=== PATIENT | male | born 1945 | race Caucasian/White ===

== ENCOUNTER 2018-12-01 11:12 | Inpatient (IN) | payer MEDICARE ==
[2018-12-01] VITALS (14 sets, daily range): BP systolic 115–147; BP diastolic 69–102
[~2018-12-01] VITALS: Ht 175.3 cm; Wt 97.1 kg
[~2018-12-01 11:12] MED LIST: ALLP300T PO; AMLO10TA PO; ATOR80TA PO; CALC-656 PO; CLIN-81 PO; CYAN100T PO; FURO40TA4 PO; GABA-486 PO; GARL200T PO; GLIP10TA13 PO; HYDR-623 PO; INDO50CA PO; LISI40TA PO; OMEG1CAP74 PO; OMEP20CA12 PO; WARF5TAB6 PO
[2018-12-01] MEDS ORDERED: diphenhydrAMINE 25 MG TAB (BENADRYL) PO PRN (11:30)
[2018-12-01] MEDS ORDERED: DOCUSATE SODIUM 100 MG (COLACE) CAP PO PRN (11:30)
[2018-12-01] MEDS ORDERED: ONDANSETRON 4 MG/2 ML (SDV) Z0FRAN IVP PRN ×2 (11:30→20:45)
[2018-12-01] MEDS ORDERED: VANCOMYCIN INJECTION 1,000 MG in NS (IVPB) 250 ML IV SCH (11:30)
[2018-12-01] MEDS ORDERED: ONDANSETRON 4 MG (ZOFRAN) ORAL DISSOLVE TAB PO PRN (11:30)
[2018-12-01] MEDS ORDERED: ACETAMINOPHEN 500 MG TAB (TYLENOL) PO PRN (11:30)
[2018-12-01] MEDS ORDERED: LOPERAMIDE 2 MG (IMODIUM) TABLET PO PRN (11:30)
[2018-12-01] MEDS ORDERED: ALPRAZolam 0.25 MG (XANAX) TAB PO PRN (11:30)
[2018-12-01] MEDS ORDERED: CALCIUM CARBONATE 500 MG (TUMS) TAB.CHEW PO PRN (11:30)
--- NOTE | 2018-12-01 13:05 | History & Physical-Hospitalist ---
[facility] 12/01/18 1305: History of Present Illness HPI/Chief Complaint Pt presents today after receiving an abscess drainage procedure for an infected post cervical fusion surgery incision. He has a history of CABG and stent placement with previous [place] in 2011 and 2016. He had surgery for his cervical fusion on 11/15/18 and had gone to [facility] for an abscess that had formed at his surgical incision site. He was transfer to this facility at the request of Dr. Hagen the surgeon who had performed the cervical fusion operation in order to monitor his infection directly. He reports that the incision had been getting painful and making him very irritable. He reports getting angry at his which caused him to want to to come to the hospital to get it checked out. He reports having a fever at the hospital but it since has gone down. He had trouble sleeping due to the pain, but after the draining he reports it is much better already. He is going to be going into the OR to have the wound opened and drained tonight. He does report having some trouble swallowing water since his original operation in which they had to use an anterior and posterior approach. Source: patient Date Seen 12/01/18 Attending Physician Landon Hidalgo MD PCP Referring Physician Date of Admission Home Medications & Allergies Home Medications Reviewed patient Home Medication Reconciliation performed by pharmacy medication reconciliations poultry field service technician and/or nursing. Patients Allergies have been reviewed. Allergies Allergies Coded Allergies Penicillins (Unverified Allergy, Unknown, HIVES, 06/13/13) Past Btxnrmj-Qwddvd-Hjykrj Hx Patient Social History Alcohol Use: Denies Use Smoking Status: Former Smoker Immunizations Up To Date Date of Pneumonia Vaccine: Nov 24, 2011 Past Medical History Surgeries: CABG, Coronary Stent Review of Systems Constitutional: No chills, No dizziness; fever EENTM: No hearing loss, No ear pain, No blurred vision, No vision loss, No throat pain Respiratory: No cough, No short of breath Cardiovascular: No chest pain, No palpitations Gastrointestinal: No abdominal pain, No constipation, No diarrhea, No nausea, No vomiting Genitourinary: No dysuria, No frequency, No hematuria, No pain Musculoskeletal: back pain (At incision site); No muscle pain, No muscle cramps; muscle weakness (Right arm flexion, Left arm abduction) Skin: no symptoms reported Psychiatric/Neurological: Depressed; Denies Headache, Denies Numbness; Tingling (Bilateral 1st toes); Denies Tremors Physical Exam Physical Exam Vital Signs Capillary Refill : Height, Weight, BMI Height: 5'10.00" Weight: 225lbs. oz. 102.078650pp; BMI Method: General Appearance: No Apparent Distress, WD/WN HEENT: PERRL/EOMI, Pharynx Normal Neck: Full Range of Motion, Non Tender Respiratory: Chest Non Tender, Lungs Clear, Normal Breath Sounds, No Accessory Muscle Use, No Respiratory Distress Cardiovascular: Regular Rate, Rhythm, No Edema, No Gallop, No JVD, No Murmur, Normal Peripheral Pulses Back: No Vertebral Tenderness, Other (Incision from neck to mid thoracic region) Extremity: Normal Inspection, No Calf Tenderness, No Pedal Edema Neurologic/Psychiatric: Alert, Oriented x3, Normal Mood/Affect Skin: Normal Color, Warm/Dry Results Results/Procedures Labs Laboratory Tests 12/01/18 15:50 Patient resulted labs reviewed. Assessment/Plan Admission Diagnosis Abscess of previous cervical fusion surgery wound Assessment and Plan Assessment: Cervical fusion surgery incision wound abscess infection with Staph, pending f inal culture of MRSA vs MSSA HTN Hyperlipidemia GERD Osteoarthritis Diabetes Plan: Broad spectrum antibiotics until culture results finish Manage HTN Manage diabetes Clinical Quality Measures DVT/VTE Risk/Contraindication: Contraindications-Pharm: Other *list below* Other: surgery today spine CARIDAD WATERS 12/01/181957: History of Present Illness HPI/Chief Complaint CC: Cervical spine incision abscess HPI: This is a male pt of Dr. Hidalgo's who I had just seen in [place] on 11/16/18 after undergoing cervical spine surgery and had done well, had an uncomplicated hospital course but presents to the [facility] with chest and neck pain and underwent stress test due to history of CAD and bypass surgery and had no reversible ischemia on scans and reviewed by Dr. 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 Pulido Neurosurgeon performed needle drainage of abscess found on MRI and blood cultures showed Staph aureus pending whether is MSSA or MRSA. He is being transported to [facility] in [place] where Dr. Hidalgo can perform I&D and he will be placed in the ICU close monitoring due to high risk of spinal cord impingement abscess formation and will be closely monitored, maintained on Cefepime and Vancomycin recommended by Dr. Sumner infectious disease and will be managed aggressively to return to function. Source: patient, RN/MD, old records Exam Limitations: no limitations Date Seen 12/01/18 Time Seen by a Provider: 16:00 Past Ivlbxmn-Jnccyi-Jzzybr Hx Past Med/Social Hx: Reviewed Nursing Past Med/Soc Hx, Reviewed and Corrections made Patient Social History Marrital Status: Employed/Student: retired Smoking Status: Former Smoker Past Medical History Surgeries: CABG, Coronary Stent Respiratory: COPD Cardiac: Atrial Fibrillation, Coronary Artery Disease, High Cholesterol, Hypertension Genitourinary: Benign Prostatic Hyperpl Gastrointestinal: Chronic Constipation Musculoskeletal: Arthritis, Chronic Back Pain Review of Systems Constitutional: see HPI, fever, malaise, weakness Musculoskeletal: muscle weakness (Right arm flexion, Left arm abduction), neck pain Physical Exam Physical Exam General Appearance: No Apparent Distress, WD/WN, Chronically ill Eyes: Right Eye Normal Inspection, Right Eye PERRL HEENT: PERRL/EOMI, Normal ENT Inspection, Pharynx Normal, Moist Mucous Membran es Neck: Limited Range of Motion, Other (dressing posterior neck) Respiratory: Chest Non Tender, Lungs Clear, Normal Breath Sounds, No Accessory Muscle Use, No Respiratory Distress Cardiovascular: Regular Rate, Rhythm, No Edema, No Gallop, No JVD, No Murmur, Normal Peripheral Pulses Gastrointestinal: Normal Bowel Sounds, No Organomegaly, No Pulsatile Mass, Non Tender, Soft Back: Normal Inspection, No CVA Tenderness, No Vertebral Tenderness Extremity: Normal Capillary Refill, Normal Inspection, Normal Range of Motion, Non Tender, No Calf Tenderness, No Pedal Edema Neurologic/Psychiatric: Alert, Oriented x3, No Motor/Sensory Deficits, Normal Mood/Affect Skin: Normal Color, Warm/Dry Lymphatic: No Adenopathy Assessment/Plan Admission Diagnosis Assessment: Cervical spine incision abscess Staph aureus bacteremia Chest pain in known CAD CABG patient with negative EST this morning HTN HLP Left shoulder septic joint years ago Plan: I&D Abx per ID Pain control ICU Admission Status: Inpatient Order (span 2 midnights) Reason for Inpatient Admission: Incisional abscess Diagnosis/Problems Diagnosis/Problems (1) Incisional abscess Status: Acute (2) Cellulitis Status: Acute Qualifiers: Site of cellulitis: neck Qualified Codes: L03.221 - Cellulitis of neck (3) CAD (coronary artery disease) Status: Chronic Qualifiers: Coronary Disease-Associated Artery/Lesion type: [place] artery [place] vs. transplanted heart: [place] heart Associated angina: without angina Qualified Codes: I25.10 - Atherosclerotic heart disease of [place] coronary artery without angina pectoris (4) Hx of CABG Status: Chronic (5) History of atrial fibrillation Status: Chronic (6) Diabetes mellitus Status: Chronic Qualifiers: Diabetes mellitus type: type 2 Diabetes mellitus oysterman insulin use: with mcfp use Diabetes mellitus complication status: with other specified complication Qualified Codes: E11.69 - Type 2 diabetes mellitus with other specified complication; Z79.4 - long-term (current) use of insulin (7) Osteoarthritis Status: Chronic Qualifiers: Osteoarthritis location: unspecified site Osteoarthritis type: unspecified Qualified Codes: M19.90 - Unspecified osteoarthritis, unspecified site (8) Hx pulmonary embolism Status: Chronic (9) Hyperlipidemia Status: Chronic (10) GERD (gastroesophageal reflux disease) Status: Chronic Qualifiers: Esophagitis presence: without esophagitis Qualified Codes: K21.9 - Gastro- esophageal reflux disease without esophagitis (11) Normal cardiac stress test Status: Acute Supervisory-Addendum Brief Verification & Attestation Participated in pt care: history, MDM, physical Personally performed: exam, history, MDM, supervision of care Care discussed with: Medical Student Procedures: n/a Results interpretation: Verified all documentation Verification and Attestation of Medical Student E/M Service A medical student performed and documented this service in my presence. I revi ewed and verified all information documented by the medical student and made modifications to such information, when appropriate. I personally performed the physical exam and medical decision making. Caridad Waters Dec 01, 2018,19:58 [facility] Dec 01, 2018 13:05 CARIDAD WATERS DO Dec 01, 2018 19:58
[2018-12-01] MEDS ORDERED: GENTAMICIN 40 MG/ML 2 ML INJ SDV ONE ×2 (15:57→21:36)
[2018-12-01] MEDS ORDERED: BACITRACIN OINTMENT 28 GM TUBE ONE (15:57)
[2018-12-01 16:12] LABS: BASOPHILS % (AUTO) 0 % (0-10); EOSINOPHILS % (AUTO) 0 % (0-10); HEMATOCRIT 34 % (40-54); HEMOGLOBIN 11.4 G/DL (13.3-17.7); LYMPHOCYTES # (AUTO) 1.1 X 10^3 (1.0-4.0); LYMPHOCYTES % (AUTO) 7 % (12-44); MEAN CORPUSCULAR HEMOGLOBIN 30 PG (25-34); MEAN CORPUSCULAR HGB CONC 34 G/DL (32-36); MEAN CORPUSCULAR VOLUME 89 FL (80-99); MEAN PLATELET VOLUME 9.6 FL (7.4-10.4); MONOCYTES # (AUTO) 0.9 X 10^3 (0.0-1.0); MONOCYTES % (AUTO) 6 % (0-12); NEUTROPHILS # (AUTO) 14.1 X 10^3 (1.8-7.8); NEUTROPHILS % (AUTO) 88 % (42-75); PLATELET COUNT 352 10^3/uL (130-400); RED CELL DISTRIBUTION WIDTH 13.7 % (10.0-14.5); WHITE BLOOD COUNT 16.2 10^3/uL (4.3-11.0)
[2018-12-01] MEDS ORDERED: FLU QUADRIvalent (5+ YOA) 2019-2020 (AFLURIA) 0.5 ML IM ONE (16:15)
--- NOTE | 2018-12-01 16:21 | Consultation ---
History of Present Illness History of Present Illness Patient Consulted On(diane/time) 12/01/18 16:15 Date Seen by Provider: Dec 01, 2018 Time Seen by Provider: 16:16 Reason for Visit: Post-Operative wound infection History of Present Illness Mr. Olivares is a 73 y/o white male who is well known to our service for perviously undergoing a cervical fusion on November 15, 2018. At that time he underwent a C3-7 ACDF with C6&C7 corpectomy, C2-T2 PSDF with Left T1-2 Laminoforaminotomy. He states that he noticed posterior cervical incision site swelling. He sough treatment at [facility] on 11-29-18, and was admitted at that time, and placed on IV antibiotics. Dr. Pulido performed a Bedside I&D yesterday, which resulted in gross drainage. Patient has been sent to our facility for continuation and continuity of care. Patient denies upper extremity pain or weakness, or cervical pain. Allergies and Home Medications Allergies Coded Allergies: Penicillins (Unverified Allergy, Unknown, HIVES, 06/13/13) Home Medications Allopurinol 300 Mg Tab, 300 MG PO DAILY, (Reported) Amlodipine Besylate 10 Mg Tablet, 10 MG PO DAILY, (Reported) Atorvastatin Calcium 80 Mg Tablet, 80 MG PO HS, (Reported) Calcium Carbonate/Vitamin D3 1 Each Tablet, 1 TAB PO DAILY, (Reported) Clindamycin Hcl 300 Mg Capsule, 300 MG PO BID NEW PRESCRIPTION CALLED IN TO [facility]. Prescribed by: GERALDO WASSERMAN on 06/21/13 1444 Cyanocobalamin 100 Mcg Tablet, 100 MCG PO DAILY, (Reported) Furosemide 40 Mg Tablet, 40 MG PO BID, (Reported) Garlic 200 Mg Tablet, 200 MG PO DAILY, (Reported) Glipizide 10 Mg Tablet, 5 MG PO BID, (Reported) TAKES 1/2 OF (10MG) Hydrocodone Bit/Acetaminophen 1 Tab Tablet, 1-2 EACH PO Q 4 - 6 HRS PRN CALLED IN TO [facility] Prescribed by: GERALDO WASSERMAN on 06/21/13 1444 Indomethacin 50 Mg Capsule, 1 MG PO BID, (Reported) Lisinopril 40 Mg Tablet, 40 MG PO DAILY, (Reported) [place]-3/Dha/Epa/Fish Oil 1,000 Mg Capsule, 2,000 MG PO BID, (Reported) TAKES 2 (1,000MG) TABS Omeprazole 20 Mg Capsule.dr, 20 MG PO DAILY, (Reported) Warfarin Sodium 5 Mg Tablet, 5 MG PO ,,THU,THU, (Reported) TAKES 7.5MG ON THU,THU,THU, TAKES 1 1/2 (5MG) TAB ON THU,THU,THU. TAKES 5 MG ON ,,THU,THU Patient Home Medication List Home Medication List Reviewed: Yes Past Bbsfzgk-Wppmjf-Wiwxci Hx Patient Social History Alcohol Use: Denies Use Recreational Drug Use: No Smoking Status: Former Smoker Recent Foreign Travel: No Contact w/Someone Who Travel: No Immunizations Up To Date Date of Pneumonia Vaccine: Nov 24, 2011 Seasonal Allergies Seasonal Allergies: No Past Medical History Surgeries: Yes (CARPAL TUNNEL, 5 BYPASS SURGERY) CABG, Coronary Stent Respiratory: No Cardiac: Yes (5 BYPASS SX IN SEP 2011) Neurological: No Gastrointestinal: No Musculoskeletal: Yes Endocrine: Yes Cancer: No Psychosocial: No Integumentary: No Blood Disorders: No Review of Systems-General Constitutional: No chills, No malaise, No weakness EENTM: no symptoms reported Respiratory: no symptoms reported Cardiovascular: no symptoms reported Gastrointestinal: no symptoms reported Genitourinary: no symptoms reported Musculoskeletal: no symptoms reported Skin: see HPI, other Physical Exam-General Problems Physical Exam Vital Signs Capillary Refill : General Appearance: no apparent distress Eyes: Bilateral Eye Normal Inspection, Bilateral Eye PERRL HEENT: PERRL/EOMI Neck: non-tender, other (Decreased ROM, Anterior cervical incision healing well. Posterior incision with keith in place. Moderate erythema with induration in periwound region. No significant fluctuance. Mild drainage at I&D site, ) Respiratory: no respiratory distress, no accessory muscle use Cardiovascular: normal peripheral pulses Gastrointestinal: non tender, soft Back: vertebral tenderness Extremities: non-tender, no pedal edema, other (Stable Right shoulder decrease ROM, Unable to Abduct left arm. Right Biceps 4/5, Triceps 5/5. LUE 5/5 throughout with FROM) Neurologic/Psychiatric: pre school manager II-XII nml as tested, no motor/sensory deficits, alert, normal mood/affect, oriented x 3 Assessment/Plan Assessment/Plan Admission Diagnosis/Plan Posterior Cervical post surgical wound infection S/P Cervical AP fusion with decompression for cervical stenosis with myelopathy NPO at this time Will proceed to OR for Posterior cervical I&D with any indicated procedure Continue Vancomycin and Cefepime Admission Status: Inpatient Order (span 2 midnights) Clinical Quality Measures DVT/VTE Risk/Contraindication: Risk Factor Score Per Nursin RFS Level Per Nursing on Admit: 3=High Contraindications-Pharm: Other *list below* Other: surgery today spine HOLDEN SOSA Dec 01, 2018 16:21
[2018-12-01] MEDS ORDERED: OMG1KC PO (16:24)
[2018-12-01] MEDS ORDERED: NS IV NR (16:24)
[2018-12-01] MEDS ORDERED: LATA2.5D5 OU (16:24)
[2018-12-01] MEDS ORDERED: AMLO5TAB9 PO (16:24)
[2018-12-01] MEDS ORDERED: GLIP5TAB13 PO (16:24)
[2018-12-01] MEDS ORDERED: ROSU40TA23 PO (16:24)
[2018-12-01] MEDS ORDERED: OMEP20CA13 PO (16:24)
[2018-12-01] MEDS ORDERED: METF-397 PO (16:24)
[2018-12-01] MEDS ORDERED: VANCOMYCIN IV NR (16:24)
[2018-12-01] MEDS ORDERED: ALLO300T2 PO (16:24)
[2018-12-01] MEDS ORDERED: CARV3.122 PO (16:24)
[2018-12-01] MEDS: NS IV 1000 ML 1,000 ML IV SCH ×3 (16:24→23:23)
[2018-12-01] MEDS ORDERED: GABA-486 PO (16:24)
[2018-12-01] MEDS ORDERED: MULT-166 PO (16:24)
[2018-12-01] MEDS ORDERED: CYAN500T62 PO (16:24)
[2018-12-01] MEDS ORDERED: ASPI-983 PO (16:27)
[2018-12-01] MEDS ORDERED: BACL10TA PO (16:28)
[2018-12-01] MEDS ORDERED: HYDR-3820 PO (16:28)
[2018-12-01 16:30] LABS: BAND NEUTROPHILS 5 %; LYMPHOCYTES % (MANUAL) 8 %; MONOCYTES % (MANUAL) 7 %; NEUTROPHILS % (MANUAL) 80 %; RBC MORPH NORMAL
[2018-12-01] MEDS ORDERED: VANCOMYCIN INJECTION 2,000 MG in NS IV 500 ML 500 ML IV NR (16:32)
[2018-12-01 16:37] LABS: ALANINE AMINOTRANSFERASE 16 U/L (0-55); ALBUMIN 3.2 GM/DL (3.2-4.5); ALKALINE PHOSPHATASE 75 U/L (40-136); BILIRUBIN,TOTAL 0.6 MG/DL (0.1-1.0); BUN/CREATININE RATIO 16; CALCIUM 9.5 MG/DL (8.5-10.1); CARBON DIOXIDE 25 MMOL/L (21-32); CHLORIDE 98 MMOL/L (98-107); CREATININE SERUM 1.18 MG/DL (0.60-1.30); GFR ESTIMATED > 60; GLUCOSE 278 MG/DL (70-105); POTASSIUM 4.1 MMOL/L (3.6-5.0); SODIUM 132 MMOL/L (135-145); TOTAL PROTEIN 6.2 GM/DL (6.4-8.2)
[2018-12-01] MEDS ORDERED: GARL200T PO (16:47)
[2018-12-01] MEDS ORDERED: FURO40TA4 PO (16:47)
[2018-12-01] MEDS ORDERED: CALC-654 PO (16:47)
--- NOTE | 2018-12-01 16:47 | NUR ---
SPOKE WITH THE PATIENT ABOUT HIS MEDICATIONS. HE KNOWS GENERALLY WHAT HE TAKES BUT IS UNSURE OF SPECIFIC DRUGS AND DOSAGES. HE STATES HE TRIED TO GIVE GOOD OF A LIST HE COULD TO [facility] BUT THE INFORMATION THEY SENT OVER MIGHT NOT BE ACCURATE EITHER. I WENT OVER THE LIST FROM [facility] AND UPDATED THE MED REC BEST I COULD FROM THE INFO THE PATIENT IS ABLE TO GIVE ME. I HAVE REQUESTED RECORDS TO BE FAXED FROM [facility] BUT WILL PROBABLY NOT RECEIVE THEM UNTIL TOMORROW. I WILL REVIEW THAT INFORMATION AND FINALIZE THE MED REC WHEN THAT INFO IS RECEIVED. Addendum: 12/02/18 at 0912 by BENJI POMPA [facility] RECEIVED THE LIST FROM THE [place] THIS MORNING AND UPDATED THE MED REC ACCORDINGLY. [place] FILLED: 10-18-18 GLIPIZIDE 10MG 1/2 BID #90 09-28-18 METFORMIN 1000MG 1/2 BID #90 09-13-18 FUROSEMIDE 40MG BID #180 09-05-18 AMLODIPINE 10MG 1/2 DAILY #45 08-27-18 ROSUVASTATIN 40MG HS #90 08-13-18 ALPROSTADIL 500MCG URETHRAL SUPPOSITORY UD PRN #6 08-12-18 ALLOPURINOL 300MG DAILY #90 07-20-18 LATANOPROST 0.005% OU HS #10 06-29-18 CARVEDILOL 6.25MG 1/2 BID #90 06-29-18 GABAPENTIN 100MG 2 BID #360 03-18-18 OMEPRAZOLE 20MG BID #180 OTC MEDS: FISH OIL AT [employer] DAILY GARLIC HS B12 DAILY ASPIRIN 81MG DAILY CALCIUM +D MO WE FR HE ALSO RECENTLY FILLED BACLOFEN AND STATES PHARMACY THAT IS SHOWN ON THE EXT MED HX.
--- NOTE | 2018-12-01 17:00 | NUR ---
CR 1.18; CR CL ~66 (PER ADJ WT 82 KG); ACTUAL WT 99 KG; VANCO 2000 MG IV BOLUS THEN 1250 MG IV Q12H; TROUGH AFTER 2ND DOSE
[2018-12-01] MEDS: CEFEPIME INJECTION 2,000 MG in WATER (STERILE) FOR INJECTION 20 ML IV SCH (17:10)
[2018-12-01] MEDS: inSUlin ASPART (NovoLOG) 1 UNIT/0.01 ML (CHARGE PER UNIT) SQ SCH ×2 (18:24→23:25)
[2018-12-01] MEDS: SENNA W/DOCUSATE (SENOKOT S) TABLET PO SCH (20:15)
[2018-12-01] MEDS ORDERED: morphine INJ 10 MG/ML 1ML (SYR OR VIAL) IVP ONE (20:45)
[2018-12-01] MEDS ORDERED: RT-ALBUTEROL SULF 2.5 MG/3 ML PRE-MIX VIAL INH PRN (20:45)
[2018-12-01] MEDS ORDERED: MEPERIDINE (DEMEROL) INJ 50 MG/ML IVP ONE (20:45)
[2018-12-01] MEDS ORDERED: HYDROmorphone 2 MG/ML VIAL (DILAUDID) IV ONE (20:45)
[2018-12-01] MEDS ORDERED: fentaNYL INJECTION 100 MCG/2 ML AMP ONE (20:51)
[2018-12-01] MEDS ORDERED: MIDAZOLAM 2 MG/2 ML (VERSED) VIAL ONE (20:51)
[2018-12-01] MEDS: LACTATED RINGERS 1,000 ML IV PRN ×2 (20:55→22:18)
[2018-12-01] MEDS ORDERED: proPOfol 200 MG/20 ML (DIPRIVAN) VIAL IV ONE (20:56)
[2018-12-01] MEDS ORDERED: SUCCINYLCHOLINE INJ 100 MG/5 ML SYR ONE (20:56)
[2018-12-01] MEDS ORDERED: LIDOCAINE PF 2% 5 ML (XYLOCAINE) VIAL ONE (20:56)
[2018-12-01] MEDS ORDERED: SEVOFLURANE (ULTANE) 15 ML INHAL SOLN ONE ×5 (20:56→22:11)
[2018-12-01] MEDS ORDERED: ONDANSETRON 4 MG/2 ML (SDV) Z0FRAN IV PRN (21:00)
[2018-12-01] MEDS ORDERED: PROMETHAZINE 25 MG (PHENERGAN) TAB PO PRN (21:00)
[2018-12-01] MEDS ORDERED: ACETAMINOPHEN 325 MG TABLET PO PRN (21:00)
[2018-12-01] MEDS ORDERED: VANCOMYCIN 1000 MG/VIAL ONE (21:24)
--- NOTE | 2018-12-01 22:07 | Progress Note-Post Operative ---
Post-Operative Progess Note Surgeon (s)/Steel Construction Worker (s) Surgeon SANDRA REINOSO MD Steel Construction Worker: LORENE Fagan Pre-Operative Diagnosis Suspected Cervcial Wound infection Post-Operative Diagnosis Same Procedure & Operative Findings Date of Procedure 12/01/18 Procedure Performed/Findings Irrigation Debridement posterior cervicothoracic wound, deep/superficial Anesthesia Type GETA Estimated Blood Loss Estimated blood loss (mL): 250 Specimens/Packing Specimens Removed Cultures SANDRA REINOSO MD Dec 01, 2018 22:07
[2018-12-01] MEDS ORDERED: PHENYLEPHRINE 100 MCG/ML 10 ML (ANESTHESIA) SYR ONE (22:11)
[2018-12-01] MEDS ORDERED: ONDANSETRON 4 MG/2 ML (SDV) Z0FRAN ONE (22:13)
[2018-12-01] MEDS: fentaNYL INJECTION 100 MCG/2 ML AMP IVP PRN (23:23)
[2018-12-01] MEDS: inSUlin ASPART (NovoLOG) 1 UNIT/0.01 ML (CHARGE PER UNIT) SC SCH (23:24)
[2018-12-02] VITALS (19 sets, daily range): BP systolic 88–139; BP diastolic 57–87
[2018-12-02] MEDS: HYDROcodone/APAP 5 MG/325 MG (LORTAB) TAB PO PRN ×6 (00:20→22:29)
[2018-12-02] MEDS: NS IV 1000 ML 1,000 ML IV SCH ×4 (01:57→23:39)
[2018-12-02] MEDS: fentaNYL INJECTION 100 MCG/2 ML AMP IVP PRN ×3 (03:17→14:10)
[2018-12-02 03:44] LABS: BASOPHILS % (AUTO) 0 % (0-10); EOSINOPHILS % (AUTO) 0 % (0-10); HEMATOCRIT 31 % (40-54); LYMPHOCYTES # (AUTO) 0.9 X 10^3 (1.0-4.0); LYMPHOCYTES % (AUTO) 7 % (12-44); MEAN CORPUSCULAR HEMOGLOBIN 29 PG (25-34); MEAN CORPUSCULAR HGB CONC 32 G/DL (32-36); MEAN CORPUSCULAR VOLUME 90 FL (80-99); MEAN PLATELET VOLUME 9.7 FL (7.4-10.4); MONOCYTES # (AUTO) 0.8 X 10^3 (0.0-1.0); MONOCYTES % (AUTO) 6 % (0-12); NEUTROPHILS # (AUTO) 10.8 X 10^3 (1.8-7.8); NEUTROPHILS % (AUTO) 86 % (42-75); PLATELET COUNT 331 10^3/uL (130-400); RED CELL DISTRIBUTION WIDTH 13.6 % (10.0-14.5); WHITE BLOOD COUNT 12.6 10^3/uL (4.3-11.0)
[2018-12-02] MEDS ORDERED: HYDROmorphone 2 MG/ML VIAL (DILAUDID) IV ONE (03:45)
[2018-12-02] MEDS ORDERED: KETOROLAC 15 MG/ML VIAL IVP ONE (03:45)
[2018-12-02 04:06] LABS: ALANINE AMINOTRANSFERASE 13 U/L (0-55); ALBUMIN 2.9 GM/DL (3.2-4.5); ALKALINE PHOSPHATASE 74 U/L (40-136); BILIRUBIN,TOTAL 0.5 MG/DL (0.1-1.0); BUN/CREATININE RATIO 16; CALCIUM 9.2 MG/DL (8.5-10.1); CARBON DIOXIDE 24 MMOL/L (21-32); CHLORIDE 101 MMOL/L (98-107); CREATININE SERUM 1.06 MG/DL (0.60-1.30); GFR ESTIMATED > 60; GLUCOSE 237 MG/DL (70-105); MAGNESIUM 1.8 MG/DL (1.6-2.4); PHOSPHORUS 3.3 MG/DL (2.3-4.7); SODIUM 132 MMOL/L (135-145); TOTAL PROTEIN 5.6 GM/DL (6.4-8.2)
--- NOTE | 2018-12-02 04:26 | OPERATIVE REPORT ---
DATE OF SERVICE: 12/01/2018 PREOPERATIVE DIAGNOSIS: Suspected posterior cervical, thoracic wound infection. POSTOPERATIVE DIAGNOSIS: Suspected posterior cervical, thoracic wound infection. Cultures pending. PROCEDURE PERFORMED: Irrigation and debridement of superficial and deep posterior cervical thoracic spine wound down to the hardware. DATE AND TIME OF SURGERY: Please see anesthesia record. IMPLANTS USED: Stimulan rapidly absorbable Bio[employer]posite antibiotic beads with gentamicin and vancomycin. SURGEON: Sandra Hidalgo MD PRINT CONTROLLER: CELINA Fagan. ROLE OF MAINTENANCE JOURNEYMAN: Aid in retraction of the procedure, aid in wound closure. ANESTHESIA: General endotracheal. ESTIMATED BLOOD LOSS: 250 mL. INTRAVENOUS FLUIDS: Please see anesthesia record. ANTIBIOTICS: Vancomycin. COMPLICATIONS: None. DRAIN: Gianluca-Andrews. INDICATIONS FOR PROCEDURE: The patient is a 73-year-old male, previous large extensive anterior, posterior cervical fusion. He has developed apparent posterior cervical wound infection was initially seen in an outside facility. I heard about this morning as I was traveling out of town and called the physician, who had been caring for him and she stated that he would be happy to go back under my care and therefore we arranged transfer. He did not make it to [facility] until late this afternoon and they had fed him lunch at 1:00 p.m., so we were forced to wait 8 hours until he could safely go under general anesthetic. Risks, benefits, alternatives were discussed with the patient. He elected to proceed with operative treatment. DESCRIPTION OF PROCEDURE: The patient was taken to the preoperative holding area and brought back to the operative suite. After adequate induction of general anesthetic, carefully turned prone on Gianluca table, careful padding torso, extremities, sterilely prepped and draped posterior cervical and thoracic spine. Chantelle have been removed. The wound was opened and upon opening the incision, some seropurulent material was expressed. It was sent for cultures. The wound was further opened and the entire wound was opened and all the fluid was evacuated. A hemostat and sharp scissors were utilized to remove all of the braided suture superficially all the way down deep. [place] curette was used to debride the muscle, skin and subcutaneous tissue, and bone all the way down to the hardware. Full hardware was exposed from C2 to T4. Full exposure was carried out and then antibiotic enhanced irrigant 6 L were pulse lavaged through and across the wound with debridement throughout the procedure. Once there was a clean viable appearing base with no other muscle or subcutaneous tissue that need to be removed, the lamina was decorticated again because so much of the bone graft had been pulse lavaged out and then antibiotic enhanced Stimulan beads were placed upon the lamina from C2 to T4 and then a deep drain was placed. The deep fascia was closed with #1 PDS absorbable monofilament suture and the wound was packed open. The patient transferred to recovery room in stable condition having tolerated the procedure well. Job ID: [id number] DocumentID: [id number] Dictated Date: 12/01/2018 22:11:29 [employer] Date: 12/02/2018 04:25:43 Dictated By: SANDRA HIDALGO MD
[2018-12-02] MEDS ORDERED: VANCOMYCIN 1250 MG/NS 250 ML IVPB IV SCH ×2 (05:00)
[2018-12-02] MEDS: inSUlin ASPART (NovoLOG) 1 UNIT/0.01 ML (CHARGE PER UNIT) SQ SCH ×2 (05:30→12:29)
[2018-12-02] MEDS: inSUlin ASPART (NovoLOG) 1 UNIT/0.01 ML (CHARGE PER UNIT) SC SCH ×4 (05:30→20:52)
[2018-12-02] MEDS: CEFEPIME INJECTION 2,000 MG in WATER (STERILE) FOR INJECTION 20 ML IV SCH ×2 (05:31→18:25)
[2018-12-02] MEDS ORDERED: KCL 20 MEQ TAB (K-DUR) PO SCH (06:00)
[2018-12-02] MEDS ORDERED: POTASSIUM CL 10MEQ/50ML IVPB 50 ML IV SCH (06:00)
[2018-12-02] MEDS ORDERED: MAGNESIUM 1 GM/100 ML IVPB 100 ML IV SCH (06:00)
--- NOTE | 2018-12-02 06:09 | Pulmonary Consultation ---
History of Present Illness History of Present Illness Date of Consultation 12/02/18 06:09 Date of Admission Reason for Visit: Post-Operative wound infection Allergies and Home Medications Allergies Coded Allergies: Penicillins (Unverified Allergy, Unknown, HIVES, 06/13/13) Home Medications Allopurinol 300 Mg Tablet, 300 MG PO DAILY, (Reported) Amlodipine Besylate 5 Mg Tablet, 5 MG PO DAILY, (Reported) Aspirin 81 Mg Tablet.dr, 81 MG PO DAILY, (Reported) Baclofen 10 Mg Tablet, 10 MG PO Q8H PRN for MUSCLE SPASMS, (Reported) Calcium Carbonate/Vitamin D3 1 Each Tablet, 1 TAB PO MoWeFr, (Reported) Carvedilol 3.125 Mg Tablet, 3.125 MG PO BID, (Reported) Cyanocobalamin (Vitamin B-12) 500 Mcg Tablet, 500 MCG PO DAILY, (Reported) Furosemide 40 Mg Tablet, 40 MG PO BID, (Reported) Gabapentin 100 Mg Capsule, 200 MG PO BID, (Reported) Garlic 200 Mg Tablet, 200 MG PO HS, (Reported) Glipizide 5 Mg Tablet, 5 MG PO BID WITH MEALS, (Reported) Hydrocodone/Acetaminophen 1 Each Tablet, 1-2 TAB PO Q4H PRN for PAIN-MODERATE, (Reported) Latanoprost 2.5 Ml Drops, 1 DROP OU HS, (Reported) Lisinopril 40 Mg Tablet, 40 MG PO DAILY, (Reported) Metformin HCl 500 Mg Tablet, 500 MG PO BID, (Reported) Multivitamin with Minerals 1 Each Tablet, 1 TAB PO DAILY, (Reported) [place] 3 Polyunsat Fatty Acids 1,000 Mg Cap, 1,000 MG PO 1200, (Reported) Omeprazole 20 Mg Capsule.dr, 20 MG PO BID, (Reported) Rosuvastatin Calcium 40 Mg Tablet, 40 MG PO HS, (Reported) Past Wyaevoc-Qzujbs-Oeobkl Hx Past Med/Social Hx: Reviewed Nursing Past Med/Soc Hx, Reviewed and Corrections made Patient Social History Alcohol Use: Denies Use Recreational Drug Use: No Smoking Status: Former Smoker Recent Foreign Travel: No Contact w/Someone Who Travel: No Immunizations Up To Date Date of Pneumonia Vaccine: Nov 24, 2011 Seasonal Allergies Seasonal Allergies: No Past Medical History Surgeries: Yes (CARPAL TUNNEL, 5 BYPASS SURGERY) CABG, Coronary Stent Respiratory: No Currently Using CPAP: No Currently Using BIPAP: No Cardiac: Yes (5 BYPASS SX IN SEP 2011) Atrial Fibrillation, Coronary Artery Disease, High Cholesterol, Hypertension Neurological: No Benign Prostatic Hyperpl Gastrointestinal: No Chronic Constipation Musculoskeletal: Yes Arthritis, Chronic Back Pain Endocrine: Yes Cancer: No Psychosocial: No Integumentary: No Blood Disorders: No Sepsis Event Evaluation Height, Weight, BMI Height: 5'10.00" Weight: 225lbs. oz. 102.562452tk; 32.24 BMI Method: Exam Exam Vital Signs Date Time Temp Pulse Resp B/P (MAP) Pulse Ox O2 Delivery O2 Flow Rate FiO2 12/02/18 04:00 85 20 112/66 (81) 93 Room Air 12/02/18 03:58 36.5 12/02/18 03:55 96 Room Air 12/02/18 03:02 Room Air 12/02/18 03:00 83 129/73 (91) 95 Room Air 12/02/18 02:00 84 30 122/75 (91) 95 Room Air 12/02/18 01:00 87 12/02/18 01:00 87 27 117/68 (84) 93 Room Air 12/02/18 00:00 92 21 121/83 (96) 92 Room Air 12/01/18 23:49 37.6 12/01/18 23:20 95 Room Air 12/01/18 23:10 Room Air 12/01/18 23:10 37.0 20 139/76 (97) 94 Room Air 12/01/18 23:00 20 139/81 (100) 94 Room Air 12/01/18 23:00 Room Air 12/01/18 23:00 96 23 139/81 (100) 92 Room Air 12/01/18 22:50 96 25 146/85 (105) 96 Room Air 12/01/18 22:50 20 146/85 (105) 98 OxyMask 4 12/01/18 22:45 OxyMask 4 12/01/18 22:40 96 25 147/89 (108) 97 Room Air 12/01/18 22:40 20 147/89 (108) 98 OxyMask 4 12/01/18 22:33 90 27 145/87 (106) 97 Room Air 12/01/18 22:32 89 26 143/102 (116) 97 Room Air 12/01/18 22:30 OxyMask 4 12/01/18 22:30 20 145/87 (106) 100 OxyMask 4 12/01/18 22:23 OxyMask 4 12/01/18 22:23 87 116/70 (85) Room Air 12/01/18 22:23 37.0 16 116/70 (85) 100 OxyMask 4 12/01/18 20:02 37.4 87 95 12/01/18 20:00 95 Room Air 12/01/18 20:00 37.4 12/01/18 20:00 81 121/73 (89) 94 Room Air 12/01/18 19:00 80 115/69 (84) 93 Room Air 12/01/18 19:00 80 12/01/18 18:20 95 Room Air 12/01/18 18:00 87 125/75 (92) 93 Room Air 12/01/18 18:00 38.1 12/01/18 17:16 38.2 12/01/18 17:15 38.2 12/01/18 17:00 93 126/85 (99) 98 Room Air 12/01/18 16:53 95 Room Air 12/01/18 16:00 37.6 12/01/18 15:45 89 19 123/84 (97) 95 Room Air 12/01/18 15:41 92 I & O 12/02/18 06:59 Intake Total 1150 ml Output Total 825 ml Balance 325 ml Height & Weight Height: 5'10.00" Weight: 225lbs. oz. 102.761855yr; 32.24 BMI Method: General Appearance: No Apparent Distress, WD/WN, Chronically ill HEENT: PERRL/EOMI, Normal ENT Inspection, Pharynx Normal, Moist Mucous Membranes Neck: Limited Range of Motion, Other Respiratory: Chest Non Tender, Lungs Clear, Normal Breath Sounds, No Accessory Muscle Use, No Respiratory Distress Cardiovascular: Regular Rate, Rhythm, No Edema, No Gallop, No JVD, No Murmur, Normal Peripheral Pulses Gastrointestinal: non tender, soft Extremity: Normal Capillary Refill, Normal Inspection, Normal Range of Motion, Non Tender, No Calf Tenderness, No Pedal Edema Neurologic/Psychiatric: Alert, Oriented x3, No Motor/Sensory Deficits, Normal Mood/Affect Skin: Normal Color, Warm/Dry Lymphatic: No Adenopathy Results Lab Laboratory Tests 12/01/18 15:50 12/02/18 03:11 SADE VÁSQUEZ DO Dec 02, 2018 06:09
[2018-12-02] MEDS: MULTIVIT W/MINERALS TAB (THERAGRAN M) PO SCH (06:19)
--- NOTE | 2018-12-02 06:57 | Progress Note ---
Subjective Date Seen by a Provider: Dec 02, 2018 Time Seen by a Provider: 06:54 Subjective/Events-last exam Pain controlled. Right shoulder pain improved. No real complaints today. Objective Exam Vital Signs Date Time Temp Pulse Resp B/P (MAP) Pulse Ox O2 Delivery O2 Flow Rate FiO2 12/02/18 06:00 79 19 123/75 (91) 94 Room Air 12/02/18 05:10 75 17 94/58 (70) 94 Room Air 12/02/18 05:00 76 19 88/57 (67) 94 Room Air 12/02/18 04:00 85 20 112/66 (81) 93 Room Air 12/02/18 03:58 36.5 12/02/18 03:55 96 Room Air 12/02/18 03:02 Room Air 12/02/18 03:00 83 129/73 (91) 95 Room Air 12/02/18 02:00 84 30 122/75 (91) 95 Room Air 12/02/18 01:00 87 12/02/18 01:00 87 27 117/68 (84) 93 Room Air 12/02/18 00:00 92 21 121/83 (96) 92 Room Air 12/01/18 23:49 37.6 12/01/18 23:20 95 Room Air 12/01/18 23:10 Room Air 12/01/18 23:10 37.0 20 139/76 (97) 94 Room Air 12/01/18 23:00 20 139/81 (100) 94 Room Air 12/01/18 23:00 Room Air 12/01/18 23:00 96 23 139/81 (100) 92 Room Air 12/01/18 22:50 96 25 146/85 (105) 96 Room Air 12/01/18 22:50 20 146/85 (105) 98 OxyMask 4 12/01/18 22:45 OxyMask 4 12/01/18 22:40 96 25 147/89 (108) 97 Room Air 12/01/18 22:40 20 147/89 (108) 98 OxyMask 4 12/01/18 22:33 90 27 145/87 (106) 97 Room Air 12/01/18 22:32 89 26 143/102 (116) 97 Room Air 12/01/18 22:30 OxyMask 4 12/01/18 22:30 20 145/87 (106) 100 OxyMask 4 12/01/18 22:23 OxyMask 4 12/01/18 22:23 87 116/70 (85) Room Air 12/01/18 22:23 37.0 16 116/70 (85) 100 OxyMask 4 12/01/18 20:02 37.4 87 95 12/01/18 20:00 95 Room Air 12/01/18 20:00 37.4 12/01/18 20:00 81 121/73 (89) 94 Room Air 12/01/18 19:00 80 115/69 (84) 93 Room Air 12/01/18 19:00 80 12/01/18 18:20 95 Room Air 12/01/18 18:00 87 125/75 (92) 93 Room Air 12/01/18 18:00 38.1 12/01/18 17:16 38.2 12/01/18 17:15 38.2 12/01/18 17:00 93 126/85 (99) 98 Room Air 12/01/18 16:53 95 Room Air 12/01/18 16:00 37.6 12/01/18 15:45 89 19 123/84 (97) 95 Room Air 12/01/18 15:41 92 I & O 12/02/18 07:00 Intake Total 1150 ml Output Total 825 ml Balance 325 ml Capillary Refill : Less Than 3 Seconds General Appearance: No Apparent Distress HEENT: PERRL/EOMI, Moist Mucous Membranes Neck: Other (Hard collar in place. Dressing and SARA in place and try, minimal SARA output) Respiratory: No Accessory Muscle Use, No Respiratory Distress Cardiovascular: Regular Rate, Rhythm, Normal Peripheral Pulses Gastrointestinal: soft Extremity: Normal Capillary Refill, Normal Inspection, Normal Range of Motion, Non Tender, No Calf Tenderness Neurologic/Psychiatric: Alert, Oriented x3, Other (Neuro unchanged, still with interosseous atrophy, but motor stable) Skin: Normal Color Results Lab Laboratory Tests 12/01/18 15:50: White Blood Count 16.2H, Red Blood Count 3.82L, Hemoglobin 11.4L, Hematocrit 34L , Mean Corpuscular Volume 89, Mean Corpuscular Hemoglobin 30, Mean Corpuscular Hemoglobin Concent 34, Red Cell Distribution Width 13.7, Platelet Count 352, Mean Platelet Volume 9.6, Neutrophils (%) (Auto) 88H, Lymphocytes (%) (Auto) 7L, Monocytes (%) (Auto) 6, Eosinophils (%) (Auto) 0, Basophils (%) (Auto) 0, Neutrophils # (Auto) 14.1H, Lymphocytes # (Auto) 1.1, Monocytes # (Auto) 0.9, Eosinophils # (Auto) 0.0, Basophils # (Auto) 0.0, Neutrophils % (Manual) 80, Lymphocytes % (Manual) 8, Monocytes % (Manual) 7, Band Neutrophils 5, Blood Morphology Comment NORMAL, Sodium Level 132L, Potassium Level 4.1, Chloride Level 98, Carbon Dioxide Level 25, Anion Gap 9, Blood Urea Nitrogen 19H, Creatinine 1.18, Estimat Glomerular Filtration Rate > 60, BUN/Creatinine Ratio 16, Glucose Level 278H, Calcium Level 9.5, Corrected Calcium 10.1, Total Bilirubin 0.6, Aspartate Amino Transf (AST/SGOT) 17, Alanine Aminotransferase (ALT/SGPT) 16, Alkaline Phosphatase 75, Total Protein 6.2L, Albumin 3.2 12/01/18 17:33: Glucometer 252H 12/01/18 23:21: Glucometer 228H 12/02/18 03:11: White Blood Count 12.6H, Red Blood Count 3.46L, Hemoglobin 10.0L, Hematocrit 31L , Mean Corpuscular Volume 90, Mean Corpuscular Hemoglobin 29, Mean Corpuscular Hemoglobin Concent 32, Red Cell Distribution Width 13.6, Platelet Count 331, Mean Platelet Volume 9.7, Neutrophils (%) (Auto) 86H, Lymphocytes (%) (Auto) 7L, Monocytes (%) (Auto) 6, Eosinophils (%) (Auto) 0, Basophils (%) (Auto) 0, Neutrophils # (Auto) 10.8H, Lymphocytes # (Auto) 0.9L, Monocytes # (Auto) 0.8, Eosinophils # (Auto) 0.0, Basophils # (Auto) 0.0, Sodium Level 132L, Potassium Level 4.0, Chloride Level 101, Carbon Dioxide Level 24, Anion Gap 7, Blood Urea Nitrogen 17, Creatinine 1.06, Estimat Glomerular Filtration Rate > 60, BUN/Creatinine Ratio 16, Glucose Level 237H, Calcium Level 9.2, Corrected Calcium 10.1, Total Bilirubin 0.5, Aspartate Amino Transf (AST/SGOT) 14, Alanine Aminotransferase (ALT/SGPT) 13, Alkaline Phosphatase 74, Total Protein 5.6L, Albumin 2.9L, Phosphorus Level 3.3, Magnesium Level 1.8 12/02/18 05:23: Glucometer 217H Assessment/Plan Assessment/Plan Assess & Plan/Chief Complaint Imp: Probable Posterior Cervical Thoracic Wound Infection Cervical Myelopathy Plan: Await culture results Wound care Ok to regular floor Clinical Quality Measures DVT/VTE Risk/Contraindication: Risk Factor Score Per Nursin RFS Level Per Nursing on Admit: 3=High Contraindications-Pharm: Other *list below* Other: surgery today spine SANDRA REINOSO MD Dec 02, 2018 06:57
[2018-12-02] MEDS: SENNA W/DOCUSATE (SENOKOT S) TABLET PO SCH ×2 (08:25→20:41)
[2018-12-02] MEDS ORDERED: CARV6.252 PO (08:59)
[2018-12-02] MEDS ORDERED: GLIP10TA13 PO (08:59)
[2018-12-02] MEDS ORDERED: AMLO10TA7 PO (08:59)
[2018-12-02] MEDS ORDERED: METF-399 PO (08:59)
[2018-12-02] MEDS ORDERED: [UNRECOGNIZED DRUG - CODE] UR (09:02)
--- NOTE | 2018-12-02 09:31 | Occ Therapy Progress Note ---
Therapy Progress Note [id number] Pt seen in room, up in bed, agreeable to talk with OT. Pt reported that he has been getting in and out of bed by himself, feeding himself, completed a sponge bath by himself this morning. walking without AD, toileting himself. No concerns about UEs. No skilled OT needs identified. ASHANTI OT. visit LAM STROUD OT Dec 02, 2018 09:31
[2018-12-02] MEDS: HYDROmorphone 2 MG/ML VIAL (DILAUDID) IV PRN ×3 (10:15→20:41)
--- NOTE | 2018-12-02 10:55 | Progress Note - Hospitalist ---
[facility] 12/02/18 1055: Subjective HPI/CC On Admission Date Seen by Provider: Dec 02, 2018 Time Seen by Provider: 07:58 CC: Cervical spine incision abscess HPI: This is a male pt of Dr. 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 Pulido Neurosurgeon performed needle drainage of abscess found on MRI and blood cultures showed Staph aureus pending whether is MSSA or MRSA. He is being transported to [facility] in [place] where Dr. Hidalgo can perform I&D and he will be placed in the ICU close monitoring due to high risk of spinal cord impingement abscess formation and will be closely monitored, maintained on Cefepime and Vancomycin recommended by Dr. uSmner infectious disease and will be managed aggressively to return to function. Subjective/Events-last exam * Pt reports significant pain in his back last night after the wound was cleaned around 2am, but after the pain medication he received it felt much better * He reports having some pain on the tops of his shoulder, which I told him was likely from the surgery positioning of his arms * He still has some difficulty swallowing water, but is able to drink thicker liquids such as Glucerna more easily Review of Systems General: No Chills HEENT: No Head Aches, No Visual Changes, No Ear Pain Pulmonary: No Dyspnea, No Cough Cardiovascular: No: Chest Pain, Palpitations Gastrointestinal: No: Nausea, Abdominal Pain, Diarrhea Musculoskeletal: shoulder pain, back pain; No: foot pain Neurological: Weakness (Right arm flexion, Left arm abduction), Numbness (Bilateral 1st toes) Focused Exam Respiratory: Chest Non Tender, Lungs Clear, Normal Breath Sounds, No Accessory Muscle Use, No Respiratory Distress Cardiovascular: Regular Rate, Rhythm, No Gallop, No Murmur, Normal Peripheral Pulses Skin: normal color, warm/dry Objective Exam Vital Signs Vital Signs Date Time Temp Pulse Resp B/P (MAP) Pulse Ox O2 Delivery O2 Flow Rate FiO2 12/02/18 10:00 93 117/67 (84) 95 Room Air 12/02/18 08:00 22 12/02/18 03:58 36.5 12/01/18 22:50 4 Capillary Refill : Less Than 3 Seconds General Appearance: WD/WN, Mild Distress Respiratory: Chest Non Tender, Lungs Clear, Normal Breath Sounds, No Accessory Muscle Use, No Respiratory Distress Cardiovascular: Regular Rate, Rhythm, No Gallop, No Murmur, Normal Peripheral Pulses Gastrointestinal: Non Tender, Soft Extremity: Non Tender, No Calf Tenderness, No Pedal Edema Neurologic/Psychiatric: Alert, Oriented x3, Normal Mood/Affect Skin: Normal Color, Warm/Dry Results/Procedures Lab Laboratory Tests 12/01/18 15:50 12/02/18 03:11 Patient resulted labs reviewed. Assessment/Plan Assessment and Plan Assess & Plan/Chief Complaint Assessment: Cervical fusion surgery incision wound abscess infection with Staph, pending final culture of MRSA vs MSSA HTN Hyperlipidemia GERD Osteoarthritis/Gout Diabetes Plan: Broad spectrum antibiotics until culture results finish Manage HTN Manage diabetes with insulin sliding scale Monitor wound vacuum site Clinical Quality Measures DVT/VTE Risk/Contraindication: Risk Factor Score Per Nursin RFS Level Per Nursing on Admit: 3=High Contraindications-Pharm: Other *list below* Other: surgery today spine CARIDAD WATERS DO 12/02/182031: Subjective Subjective/Events-last exam Patient doing much better today Pain is better controlled Wound VAC will be placed to facilitate healing Restarted most home medicine Insulin initiated for hyperglycemia Check meds and labs Review of Systems General: Fatigue Objective Exam General Appearance: No Apparent Distress, WD/WN, Chronically ill Respiratory: Lungs Clear Cardiovascular: Regular Rate, Rhythm Back: Decreased Range of Motion (neck) Neurologic/Psychiatric: Alert, Oriented x3, No Motor/Sensory Deficits, Normal Mood/Affect Assessment/Plan Assessment and Plan Assess & Plan/Chief Complaint Empiric abx Pain control Await Cx Diagnosis/Problems Diagnosis/Problems (1) Neck abscess (2) Diabetes mellitus Status: Chronic Qualifiers: Qualified Codes: E11.69 - Type 2 diabetes mellitus with other specified complication; Z79.4 - snf (current) use of insulin (3) Cellulitis Status: Acute Qualifiers: Qualified Codes: L03.221 - Cellulitis of neck (4) CAD (coronary artery disease) Status: Chronic Qualifiers: Qualified Codes: I25.10 - Atherosclerotic heart disease of [place] coronary artery without angina pectoris (5) Osteoarthritis Status: Chronic Qualifiers: Qualified Codes: M19.90 - Unspecified osteoarthritis, unspecified site (6) History of atrial fibrillation Status: Chronic (7) Incisional abscess Status: Acute (8) Hyperlipidemia Status: Chronic (9) GERD (gastroesophageal reflux disease) Status: Chronic Qualifiers: Qualified Codes: K21.9 - Gastro-esophageal reflux disease without esophagitis (10) Normal cardiac stress test Status: Acute (11) Hx pulmonary embolism Status: Chronic (12) Hx of CABG Status: Chronic Supervisory-Addendum Brief Verification & Attestation Participated in pt care: history, MDM, physical Personally performed: exam, history, MDM, supervision of care Care discussed with: Medical Student Procedures: n/a Results interpretation: Verified all documentation Verification and Attestation of Medical Student E/M Service A medical student performed and documented this service in my presence. I reviewed and verified all information documented by the medical student and made modifications to such information, when appropriate. I personally performed the physical exam and medical decision making. Caridad Waters, Dec 02, 2018,20:32 [facility] Dec 02, 2018 10:55 CARIDAD WATERS DO Dec 02, 2018 20:32
--- NOTE | 2018-12-02 10:59 | Physical Therapy Evaluation ---
PT Evaluation-General Medical Diagnosis Admission Date Dec 01, 2018 at 15:36 Medical Diagnosis: post cervical wound infection Onset Date: Dec 01, 2018 Therapy Diagnosis Therapy Diagnosis: debility/weakness Height/Weight Height (Feet): 5 Height (Inches): 10.00 Weight (Pounds): 225 Precautions Precautions/Isolations: Fall Prevention, Standard Precautions Weight Bear Status Right Lower Extremity: Right Weight Bearing/Tolerated Left Lower Extremity: Left Weight Bearing/Tolerated Referral Physician: Rocky Reason for Referral: Evaluation/Treatment Medical History Pertinent Medical History: CABG, DM, GERD, HTN, MO Current History s/p abscess drainage Reviewed History: Yes Social History Home: Single Level Current Living Status: Spouse Prior Prior Level of Function SCALE: Activities may be completed with or without assistive devices. 8-Ckyhhfmauh-zhonhxv completes the activity by him/herself with no assistance from a helper. 5-Set-up or Clean-up Assistance-helper sets up or cleans up; patient completes activity. Stow assists only prior to or following the activity. 4-Supervision or Touching Assistance-helper provides verbal cues and/or touching/steadying and/or contact guard assistance as patient completes activity. Assistance may be provided throughout the activity or intermittently. 3-Partial/Moderate Assistance-helper does LESS THAN HALF the effort. Stow lifts, holds or supports trunk or limbs, but provides less than half the effort. 2-Substantial/Maximal Assistance-helper does MORE THAN HALF the effort. Stow lifts or holds trunk or limbs and provides more than half the effort. 2-Ntmrtqkej-rocvvl does ALL the effort. Patient does none of the effort to complete the activity. Or, the assistance of 2 or more helpers is required for the patient to complete the activity. If activity was not attempted, code reason: 7-Patient Refused. 9-Not Applicable-not attempted and the patient did not perform the activity before the current illness, exacerbation or injury. 10-Not Attempted due to Environmental Limitations-(lack of equipment, weather restraints, etc.). 88-Not Attempted due to Medical Conditions or Safety Concerns. Bed Mobility: 7 Transfers (B,C,W/C): 7 Gait: 7 Stairs: 7 Indoor Mobility (Ambulation): Independent Stairs: Independent Prior Devices Use: None PT Evaluation-Current Subjective Patient agrees to PT. C/o 10/10 bilateral shoulder pain. Pain Numeric Pain Scale: 10-Worst Possible Pain Location: Right, Left Location Body Site: Shoulder Pain Description: Burning, Sharp Comment: meds issued Objective Patient Orientation: Normal For Age Problem Solving: Fair Attachments: IV ROM/Strength ROM Lower Extremities bilateral LE WFL Strength Lower Extremities 4/5 grossly bilateral LE Integumentary/Posture Integumentary refer to nursing notes Bowel Incontinence: No Bladder Incontinence: No Posture WFL Neuromuscular (Tone, Coordination, Reflexes) grossly intact Sensory Vision: Wears Glasses Hearing: Functional Sensation Right Lower Extremit: Impaired Sensation Left Lower Extremity: Impaired Transfers Roll Left to Right (QC): 6 Sit to Lying (QC): 6 Lying to Sitting/Side of Bed(Q: 6 Sit to Stand (QC): 6 Chair/Rwh-ep-Eofwc Xfer(QC): 6 Gait Does the Patient Walk?: Yes Mode of Locomotion: Walk Anticipated Mode of Locomotion: Walk Distance (FIM): 3=150 ft Walk 10 feet (QC): 6 Walk 50 ft with 2 Turns(QC): 6 Walk 150 ft (QC): 6 Distance: 225' Gait Assistive Device: None Comments/Gait Description steady, rapid pace Balance Sitting Static: Normal Sitting Dynamic: Normal Standing Static: Normal Standing Dynamic: Normal Picking up an Object (QC): 88 Assessment/Needs 73 y.o. male, will be seen short term by skilled PT to address functional mobility to ensure safe return to home at maximum LOF. Rehab Potential: Fair PT Mcfp Goals Mcfp Goals PT Mcfp Goals Time Frame: Dec 04, 2018 Sit to Lying (QC): 6 Lying-Sitting on Side/Bed(QC): 6 Sit to Stand (QC): 6 Roll Left to Right (QC): 6 Chair/Qdf-mp-Uggfm Xfer(QC): 6 Does the Patient Walk: Yes Distance: 250' Walk 10 feet (QC): 6 Walk 10ft-Uneven Surface(QC): 6 Walk 50ft with 2 Turns (QC): 6 Walk 150 ft (QC): 6 Gait Assistive Device: None Picking up an Object (QC): 5 PT Plan Treatment/Plan Treatment Plan: Continue Plan of Care Treatment Plan: Education, Functional Activity Torrie, Functional Strength, Gait, Safety, Therapeutic Exercise, Transfers Treatment Duration: Dec 04, 2018 Frequency: 3 times per week Estimated Hrs Per Day: .25 hour per day Patient and/or Family Agrees t: Yes Time/GCodes Time In: 1001 Time Out: 1012 Total Billed Treatment Time: 11 Total Billed Treatment 1 visit EVLowC 11 min JANINA PERALTA PT Dec 02, 2018 10:59
--- NOTE | 2018-12-02 11:15 | NUR ---
Pastoral care visit, pt is experiencing alot of discomfort, offered prayer and support.
--- NOTE | 2018-12-02 13:28 | Diagnostic Imaging Report ---
EXAMINATION: Portable AP chest at 1:03 p.m. INDICATION: Line placement. COMPARISON: There are no prior studies available for comparison. FINDINGS: Reportedly, a central venous catheter has been inserted on the right. The tip of the line is somewhat difficult to visualize as it is obscured by the bilateral pedicle screws and interconnecting rods overlying the lower thoracic and upper lumbar spine. I suspect that the tip is near the junction of the right subclavian vein and superior vena cava. There is no sign of pneumothorax on the right. The heart is enlarged, and there are sternotomy wires and surgical clips evident. The lungs are generally clear. The mediastinum is not widened. The osseous structures are intact. IMPRESSION: 1. There is cardiomegaly and evidence of prior cardiac surgery, but there is no sign of an acute cardiopulmonary abnormality. 2. There has been insertion of a right-sided PICC line without apparent complication. The tip of the line overlies the junction of the right subclavian vein and superior vena cava. Dictated by: Dictated on workstation # [id number]
--- NOTE | 2018-12-02 14:02 | Anesthesia-General Post-Op ---
General Patient Condition Mental Status/LOC: Same as Preop Cardiovascular: Satisfactory Nausea/Vomiting: Absent Respiratory: Satisfactory Pain: Controlled Complications: Absent Post Op Complications Complications None Follow Up Care/Instructions Patient Instructions None needed. Anesthesia/Patient Condition Patient Condition Patient is doing well, no complaints, stable vital signs, no apparent adverse anesthesia problems. SHYLA QUIJANO DO Dec 02, 2018 14:02
--- NOTE | 2018-12-02 14:15 | Physician Query Clarification ---
PQ-Intro New Diagnosis Admission/Discharge Admission Date: Dec 01, 2018 at 15:36 Discharge Date: The medical record reflects the following clinical scenario: History/Risk Factors: Post op Cervical wound infection. Staph Aureus Bacteremia Clinical Findings: WBC 16.2, Bands 5, T 37.6 Pulse 93, BP 126/85 Treatment:IV Vancomycin HCI, IV Cefepime HCI. Question: What condition best reflects the above clinical scenario? Please document a response in the Progress Noter or Discharge Summary. 1. Sepsis due to Staph aureus. 2. Bacteremia (Staph aureus) only without diagnosis of sepsis. 3. Other, with explanation of the clinical findings. 4. Clinically undetermined, no explanation for the clinical findings. PHYSICIAN RESPONSE What condition reflects above: 2 Please remember a lack of response to the above will prompt a phone page by CDI/Coding staff. In responding to this query, please exercise your independent professional judgment. The purpose of this communication is to more accurately reflect the complexity of your patients condition. The fact that a question is asked does not imply that any particular answer is desired or expected. Thank you for your timely response to this clarification. Requestors name: Millie Tucker [facility] Phone # ext [phone] or [phone] THIS PHYSICIAN QUERY FORM IS A PERMANENT PART OF THE MEDICAL RECORD MILLIE TUCKER Dec 02, 2018 14:15 WARREN WATERS DO Dec 02, 2018 21:17
[2018-12-02] MEDS ORDERED: TROUGH ORDER-PHARMACY XX NR (16:00)
--- NOTE | 2018-12-02 16:13 | NUR ---
RD ASSESSMENT PMHx: CABG; HTN; HLD; DM; GERD; CAD PT INTERACTION: Pt was awake and pleasant during nutrition assessment. Pt states current appetite is pretty poor and has been this way for the last 10 days. Pt states no recent issues with n/v at this time. Pt states no recent issues with c/d at this time. Pt states following a regular diet at home, but has some difficulty swallowing, stating that he has difficulty swallowing food "quickly." Pt states swallowing difficulties have been occuring for the past two months. Pt states 15# wt loss, but couldn't give a timeframe of when he started losing weight. Note unable to determine recent wt hx, per chart review. ABNORMAL NUTRITION-RELATED LAB VALUES: Hgb 10.0 (L); Hct 21 (L); Na 132 (L); Pro 5.6 (L); alb 2.9 (L) Est. kcal needs: 5012-9358 kcal (20-25 kcal/kg) Est. Pro needs: 120-140 g Pro (1.2-1.4 g Pro/kg) PES STATEMENT: Inadequate oral intake related to loss of appetite | wound (abscess) as evidenced by patient interview. INTERVENTION: Continue with current diet order of CHO 60g/m 1snack diet. Add Glucerna (kalpesh) to meals BID. Provides 180 kcal and 10 g Pro per serving, for perceived benefits of wound healing. Encouraged pt to eat when able. MONITOR/EVALUATE: PO Intake; Plan of Care; Hydration Status; Weight Status; Lab Values Larry Petit, MS, RD, LD [phone]
--- NOTE | 2018-12-02 17:03 | NUR ---
ORDERS RECEIVED EARLIER IN SHIFT TO TRANSFER PT TO 4TH FLOOR. PT TRANSFERRED AT 1648 VIA W/C ACCOMPANIED BY FAMILY AND THIS RN. ALL PERSONAL BELONGINGS SENT WITH PT TO FLOOR. REPORT GIVEN PRIOR TO TRANSFER TO [facility].
--- NOTE | 2018-12-02 17:05 | NUR ---
ASSUMED PT CARE -- NOTE REPORT WAS GIVEN TO LAM -- AND THEN SHE SENT HOME L[facility]ENSUS --
--- NOTE | 2018-12-02 17:17 | NUR ---
[facility] WAS 24.9 PHARMACY WAS CALLED -- THIS RN WAS TOLD TO HOLD IT AND PHARMACY WOULD REVAMP IT
[2018-12-03] VITALS: BP 148/85
[2018-12-03] MEDS: HYDROcodone/APAP 5 MG/325 MG (LORTAB) TAB PO PRN ×3 (02:24→21:43)
[2018-12-03] MEDS: MELATONIN 3 MG TABLET PO PRN ×2 (02:29→21:42)
[2018-12-03] MEDS ORDERED: TROUGH ORDER-PHARMACY XX NR (03:00)
[2018-12-03 03:29] LABS: BASOPHILS % (AUTO) 0 % (0-10); EOSINOPHILS # (AUTO) 0.2 10^3/uL (0.0-0.3); EOSINOPHILS % (AUTO) 2 % (0-10); HEMATOCRIT 29 % (40-54); HEMOGLOBIN 9.5 G/DL (13.3-17.7); LYMPHOCYTES # (AUTO) 0.7 X 10^3 (1.0-4.0); LYMPHOCYTES % (AUTO) 9 % (12-44); MEAN CORPUSCULAR HEMOGLOBIN 30 PG (25-34); MEAN CORPUSCULAR HGB CONC 33 G/DL (32-36); MEAN CORPUSCULAR VOLUME 90 FL (80-99); MEAN PLATELET VOLUME 9.9 FL (7.4-10.4); MONOCYTES # (AUTO) 0.7 X 10^3 (0.0-1.0); MONOCYTES % (AUTO) 8 % (0-12); NEUTROPHILS # (AUTO) 7.1 X 10^3 (1.8-7.8); NEUTROPHILS % (AUTO) 82 % (42-75); PLATELET COUNT 296 10^3/uL (130-400); RED CELL DISTRIBUTION WIDTH 13.3 % (10.0-14.5); WHITE BLOOD COUNT 8.6 10^3/uL (4.3-11.0)
[2018-12-03 03:47] LABS: ALANINE AMINOTRANSFERASE 21 U/L (0-55); ALBUMIN 2.8 GM/DL (3.2-4.5); ALKALINE PHOSPHATASE 95 U/L (40-136); BILIRUBIN,TOTAL 0.4 MG/DL (0.1-1.0); BUN/CREATININE RATIO 15; CALCIUM 8.8 MG/DL (8.5-10.1); CARBON DIOXIDE 22 MMOL/L (21-32); CHLORIDE 102 MMOL/L (98-107); CREATININE SERUM 1.03 MG/DL (0.60-1.30); GFR ESTIMATED > 60; GLUCOSE 217 MG/DL (70-105); MAGNESIUM 1.9 MG/DL (1.6-2.4); POTASSIUM 3.6 MMOL/L (3.6-5.0); SODIUM 133 MMOL/L (135-145); TOTAL PROTEIN 5.5 GM/DL (6.4-8.2)
[2018-12-03 03:53] LABS: VANCOMYCIN,TROUGH 20.2 UG/ML (10.0-20.0)
[2018-12-03 04:15] VITALS: BP 140/76
[2018-12-03] MEDS: CEFEPIME INJECTION 2,000 MG in WATER (STERILE) FOR INJECTION 20 ML IV SCH ×2 (06:24→19:44)
[2018-12-03] MEDS: MULTIVIT W/MINERALS TAB (THERAGRAN M) PO SCH (06:24)
[2018-12-03] MEDS: inSUlin ASPART (NovoLOG) 1 UNIT/0.01 ML (CHARGE PER UNIT) SC SCH ×4 (06:24→21:42)
[2018-12-03] MEDS: HYDROmorphone 2 MG/ML VIAL (DILAUDID) IV PRN (06:50)
--- NOTE | 2018-12-03 07:47 | NUR ---
PTD VANCOMYCIN LABS: SCR 1.03 VANCO LEVELS 24.9 (12/02) AND 20.2 (12/03) ~ 11 HOURS APART PHARMACOKINETIC DOSING: KD ~ 0.0174 AND T1/2 ~ 40 HOURS PLAN: CHANGE VANCOMYCIN TO 1,000MG IV Q48 HOURS, STARTING ON 12/04 @ 1200.
[2018-12-03 08:00] VITALS: BP 141/82
[2018-12-03] MEDS: SENNA W/DOCUSATE (SENOKOT S) TABLET PO SCH ×2 (08:25→21:42)
[2018-12-03] MEDS: fentaNYL INJECTION 100 MCG/2 ML AMP IVP PRN (09:36)
[2018-12-03] MEDS ORDERED: BACLOFEN 10 MG (LIORESAL) TAB PO NR (09:45)
--- NOTE | 2018-12-03 10:57 | Progress Note - Hospitalist ---
[facility] 12/03/18 1057: Subjective HPI/CC On Admission Date Seen by Provider: Dec 03, 2018 Time Seen by Provider: 08:10 CC: Cervical spine incision abscess HPI: This is a male pt of Dr. 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 Pulido Neurosurgeon performed needle drainage of abscess found on MRI and blood cultures showed Staph aureus pending whether is MSSA or MRSA. He is being transported to [facility] in [place] where Dr. Hidalgo can perform I&D and he will be placed in the ICU close monitoring due to high risk of spinal cord impingement abscess formation and will be closely monitored, maintained on Cefepime and Vancomycin recommended by Dr. Sumner infectious disease and will be managed aggressively to return to function. Subjective/Events-last exam * Pt reports having significant pain described as burning in his left shoulder that radiates to his neck at the base of his skull * He slept well until the morning around 530 when he woke up with the pain, and was sweating a lot at that time * He states the medication did help after 30 minutes, but he says he had to wait an hour before the dose was available * He denies having a bowel movement yet, but has been able to urinate normally Focused Exam Respiratory: Chest Non Tender, Lungs Clear, Normal Breath Sounds, No Accessory Muscle Use, No Respiratory Distress Cardiovascular: Regular Rate, Rhythm, No Gallop, No Murmur, Normal Peripheral Pulses Skin: normal color, diaphoresis, damp Objective Exam Vital Signs Vital Signs Date Time Temp Pulse Resp B/P (MAP) Pulse Ox O2 Delivery O2 Flow Rate FiO2 12/03/18 08:00 36.0 89 20 141/82 (101) 95 Room Air 12/01/18 22:50 4 Capillary Refill : Less Than 3 Seconds General Appearance: WD/WN, Mild Distress Neck: Non Tender, Supple Respiratory: Chest Non Tender, Lungs Clear, Normal Breath Sounds, No Accessory Muscle Use, No Respiratory Distress Cardiovascular: Regular Rate, Rhythm, No Gallop, No Murmur, Normal Peripheral Pulses Extremity: Normal Inspection, Non Tender, No Calf Tenderness, No Pedal Edema Neurologic/Psychiatric: Alert, Oriented x3, Normal Mood/Affect Skin: Normal Color, Damp, Diaphoresis Results/Procedures Lab Laboratory Tests 12/03/18 03:15 Patient resulted labs reviewed. Assessment/Plan Assessment and Plan Assess & Plan/Chief Complaint Assessment: Post Surgical wound Muscle spasm pain in left shoulder/neck region HTN Hyperlipidemia GERD Osteoarthritis/Gout Diabetes Plan: Continue wound care Manage muscle spasm pain with muscle relaxer and analgesics Manage HTN Manage diabetes with insulin sliding scale Clinical Quality Measures DVT/VTE Risk/Contraindication: Risk Factor Score Per Nursin RFS Level Per Nursing on Admit: 3=High Contraindications-Pharm: Other *list below* Other: surgery today spine CARIDAD WATERS 12/03/182047: Subjective Subjective/Events-last exam Severe pain in the left neck. RN came to tell me this so I initiated a Lidocaine patch and Baclofen. When I walked in Pt was talking on his phone without any distress, when he hung up he started having severe pain which does not appear to be any type of organic based issue but I am assuming the muscle spasms are quite uncomfortable. Cultures pending. Maintain on broad-spectrum antibiotics. Walking ad-narendra. Review of Systems Musculoskeletal: neck pain Objective Exam General Appearance: No Apparent Distress, WD/WN, Chronically ill Respiratory: Lungs Clear Cardiovascular: Regular Rate, Rhythm Back: Decreased Range of Motion (neck) Neurologic/Psychiatric: Alert, Oriented x3, No Motor/Sensory Deficits, Normal Mood/Affect Assessment/Plan Assessment and Plan Assess & Plan/Chief Complaint Neck spasms Somatic issues Diagnosis/Problems Diagnosis/Problems (1) Neck abscess (2) Diabetes mellitus Status: Chronic Qualifiers: Qualified Codes: E11.69 - Type 2 diabetes mellitus with other specified complication; 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 (3) Cellulitis Status: Acute Qualifiers: Qualified Codes: L03.221 - Cellulitis of neck (4) CAD (coronary artery disease) Status: Chronic Qualifiers: Qualified Codes: I25.10 - Atherosclerotic heart disease of [place] coronary artery without angina pectoris (5) Osteoarthritis Status: Chronic Qualifiers: Qualified Codes: M19.90 - Unspecified osteoarthritis, unspecified site (6) History of atrial fibrillation Status: Chronic (7) Incisional abscess Status: Acute (8) Hyperlipidemia Status: Chronic (9) GERD (gastroesophageal reflux disease) Status: Chronic Qualifiers: Qualified Codes: K21.9 - Gastro-esophageal reflux disease without esophagitis (10) Normal cardiac stress test Status: Acute (11) Hx pulmonary embolism Status: Chronic (12) Hx of CABG Status: Chronic Supervisory-Addendum Brief Verification & Attestation Participated in pt care: history, MDM, physical Personally performed: exam, history, MDM, supervision of care Care discussed with: Medical Student Procedures: n/a Results interpretation: Verified all documentation Verification and Attestation of Medical Student E/M Service A medical student performed and documented this service in my presence. I reviewed and verified all information documented by the medical student and made modifications to such information, when appropriate. I personally performed the physical exam and medical decision making. Caridad Waters, Dec 03, 2018,20:48 [facility] Dec 03, 2018 10:57 CARIDAD WATERS DO Dec 03, 2018 20:48
[2018-12-03] MEDS: LIDOCAINE 4% (SALONPAS) PATCH TOP SCH (11:12)
[2018-12-03 11:27] VITALS: BP 121/75
--- NOTE | 2018-12-03 11:42 | Physical Therapy Daily Note ---
PT Daily Note-Current Subjective Patient is crying in pain with meds issued prior. Reluctantly agrees to PT. Pain Numeric Pain Scale: 10-Worst Possible Pain Location: Posterior, Right, Incisional Location Body Site: Neck Pain Description: Acute Mental Status Patient Orientation: Normal For Age Transfers SCALE: Activities may be completed with or without assistive devices. 1-Xskgakbayd-wcqutry completes the activity by him/herself with no assistance from a helper. 5-Set-up or Clean-up Assistance-helper sets up or cleans up; patient completes activity. Bohannon assists only prior to or following the activity. 4-Supervision or Touching Assistance-helper provides verbal cues and/or touching/steadying and/or contact guard assistance as patient completes activity. Assistance may be provided throughout the activity or intermittently. 3-Partial/Moderate Assistance-helper does LESS THAN HALF the effort. Bohannon l ifts, holds or supports trunk or limbs, but provides less than half the effort. 2-Substantial/Maximal Assistance-helper does MORE THAN HALF the effort. Bohannon lifts or holds trunk or limbs and provides more than half the effort. 6-Deoedumep-cumzjp does ALL the effort. Patient does none of the effort to complete the activity. Or, the assistance of 2 or more helpers is required for t he patient to complete the activity. If activity was not attempted, code reason: 7-Patient Refused. 9-Not Applicable-not attempted and the patient did not perform the activity before the current illness, exacerbation or injury. 10-Not Attempted due to Environmental Limitations-(lack of equipment, weather restraints, etc.). 88-Not Attempted due to Medical Conditions or Safety Concerns. Roll Left to Right (QC): 6 Sit to Lying (QC): 6 Sit to Stand (QC): 6 Chair/Jwx-wl-Kyihu Xfer(QC): 6 Bed to/from Chair: 6 Weight Bearing Right Lower Extremity: Right Weight Bearing/Tolerated Left Lower Extremity: Left Weight Bearing/Tolerated Gait Training Distance: 500' Walk 10 feet (QC): 6 Walk 50 ft with 2 Turns(QC): 6 Walk 150 ft (QC): 6 Gait Assistive Device: None steady, functional gait sequence with no deviation Assessment Patient is up in recliner. Soft collar, per Dr. Sanders, placed on patient secondary to patient refusal to don [place] Collar. Patient is currently at [facility] [place] with gross motor skills and has been instructed to ambulate PRN in hallway. RN and physician notified of PT dismissing patient from services. 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 Goals Electric Locomotive Firer/Fireman Goals 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 Goals Time Frame: Dec 04, 2018 Sit to Lying (QC): 6 Lying-Sitting on Side/Bed(QC): 6 Sit to Stand (QC): 6 Roll Left to Right (QC): 6 Chair/Wme-cy-Qymov Xfer(QC): 6 Does the Patient Walk: Yes Distance: 250' Walk 10 feet (QC): 6 Walk 10ft-Uneven Surface(QC): 6 Walk 50ft with 2 Turns (QC): 6 Walk 150 ft (QC): 6 Gait Assistive Device: None Picking up an Object (QC): 5 PT Plan Treatment/Plan Treatment Plan: Discontinue PT, goals met Treatment Plan: Education, Functional Activity Torrie, Functional Strength, Gait, Safety, Therapeutic Exercise, Transfers Treatment Duration: Dec 04, 2018 Frequency: 3 times per week Estimated Hrs Per Day: .25 hour per day Patient and/or Family Agrees t: Yes Time/GCodes Time In: 1012 Time Out: 1020 Total Billed Treatment Time: 8 Total Billed Treatment 1 visit FA JANINA PERALTA PT Dec 03, 2018 11:42
--- NOTE | 2018-12-03 15:48 | Progress Note ---
Standard Progress Note Progress Notes/Assess & Plan Date Seen by a Provider: Dec 03, 2018 Time Seen by a Provider: 15:42 Progress/Assessment & Plan Patient complaining of severe burning pain in the right shoulder. Dressing was change a few hours ago but looks dry clean and intact now. N/V/M/I in all extremities. A: infected c-spine wound Plan: Patient is getting Fentanyl, baclofen and Xanax and has been sleeping through out the day. Drain only put out 30 cc in the last 7 hours. Will see if pain meds need adjusted for better control. Final Diagnosis C- spine wound infections MISBAH MCGEE Dec 03, 2018 15:48
[2018-12-03 16:40] VITALS: BP 145/78
[2018-12-03 20:42] VITALS: BP 153/84
[2018-12-03] MEDS: LIDOCAINE PATCH REMOVAL TP SCH (22:32)
[2018-12-04] VITALS: BP 130/75
[2018-12-04 04:00] VITALS: BP 118/66
[2018-12-04] MEDS: HYDROcodone/APAP 5 MG/325 MG (LORTAB) TAB PO PRN ×4 (05:29→21:40)
[2018-12-04] MEDS: inSUlin ASPART (NovoLOG) 1 UNIT/0.01 ML (CHARGE PER UNIT) SC SCH ×5 (05:48→21:15)
[2018-12-04] MEDS: CEFEPIME INJECTION 2,000 MG in WATER (STERILE) FOR INJECTION 20 ML IV SCH (05:48)
[2018-12-04] MEDS: MULTIVIT W/MINERALS TAB (THERAGRAN M) PO SCH (05:48)
[2018-12-04 06:09] LABS: BASOPHILS % (AUTO) 0 % (0-10); EOSINOPHILS # (AUTO) 0.2 10^3/uL (0.0-0.3); EOSINOPHILS % (AUTO) 3 % (0-10); HEMATOCRIT 31 % (40-54); HEMOGLOBIN 9.9 G/DL (13.3-17.7); LYMPHOCYTES # (AUTO) 1.1 X 10^3 (1.0-4.0); LYMPHOCYTES % (AUTO) 17 % (12-44); MEAN CORPUSCULAR HEMOGLOBIN 29 PG (25-34); MEAN CORPUSCULAR HGB CONC 33 G/DL (32-36); MEAN CORPUSCULAR VOLUME 89 FL (80-99); MEAN PLATELET VOLUME 9.6 FL (7.4-10.4); MONOCYTES # (AUTO) 0.6 X 10^3 (0.0-1.0); MONOCYTES % (AUTO) 9 % (0-12); NEUTROPHILS # (AUTO) 4.9 X 10^3 (1.8-7.8); NEUTROPHILS % (AUTO) 72 % (42-75); PLATELET COUNT 390 10^3/uL (130-400); RED CELL DISTRIBUTION WIDTH 13.7 % (10.0-14.5); WHITE BLOOD COUNT 6.8 10^3/uL (4.3-11.0)
[2018-12-04 06:34] LABS: ALANINE AMINOTRANSFERASE 24 U/L (0-55); ALBUMIN 2.9 GM/DL (3.2-4.5); ALKALINE PHOSPHATASE 81 U/L (40-136); BILIRUBIN,TOTAL 0.4 MG/DL (0.1-1.0); BUN/CREATININE RATIO 11; CALCIUM 9.6 MG/DL (8.5-10.1); CARBON DIOXIDE 23 MMOL/L (21-32); CHLORIDE 104 MMOL/L (98-107); GFR ESTIMATED > 60; GLUCOSE 202 MG/DL (70-105); POTASSIUM 3.3 MMOL/L (3.6-5.0); SODIUM 138 MMOL/L (135-145); TOTAL PROTEIN 5.8 GM/DL (6.4-8.2)
[2018-12-04 08:00] VITALS: BP 142/81
[2018-12-04] MEDS: SENNA W/DOCUSATE (SENOKOT S) TABLET PO SCH ×2 (09:19→21:41)
[2018-12-04] MEDS: LIDOCAINE 4% (SALONPAS) PATCH TOP SCH (09:20)
--- NOTE | 2018-12-04 10:14 | Progress Note ---
Subjective Date Seen by a Provider: Dec 04, 2018 Time Seen by a Provider: 10:11 Subjective/Events-last exam POD #3, s/p Posterior cervical surgical site I&D secondary to wound infection Patient complains of surgical site pain Review of Systems General: No Chills; Night Sweats Pulmonary: No Cough Cardiovascular: No: Chest Pain Gastrointestinal: No: Nausea, Vomiting Genitourinary: No Dysuria Musculoskeletal: neck pain, shoulder pain; No: arm pain, back pain Neurological: No: Weakness, Numbness Objective Exam Vital Signs Date Time Temp Pulse Resp B/P (MAP) Pulse Ox O2 Delivery O2 Flow Rate FiO2 12/04/18 08:00 Room Air 12/04/18 08:00 36.3 84 20 142/81 (101) 96 Room Air 12/04/18 04:00 36.8 83 18 118/66 (83) 94 Room Air 12/04/18 00:00 37.3 84 18 130/75 (93) 95 Room Air 12/03/18 22:58 Room Air 12/03/18 20:42 37.1 91 18 153/84 (107) 95 Room Air 12/03/18 20:00 Room Air 12/03/18 16:40 37.1 82 18 145/78 (100) 96 Room Air 12/03/18 11:27 36.7 84 20 121/75 (90) 95 Room Air I & O 12/04/18 07:00 Intake Total 1050 ml Output Total 1165 ml Balance -115 ml Capillary Refill : Less Than 3 Seconds General Appearance: No Apparent Distress HEENT: PERRL/EOMI Neck: No Full Range of Motion, No Non Tender; Other (Dressing CDI) Respiratory: No Accessory Muscle Use, No Respiratory Distress Gastrointestinal: soft Extremity: Non Tender, No Calf Tenderness Neurologic/Psychiatric: Alert, Oriented x3, Normal 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, 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 Norm as Tested Results Lab Laboratory Tests 12/03/18 10:51: Glucometer 334H 12/03/18 16:06: Glucometer 217H 12/03/18 20:42: Glucometer 261H 12/04/18 06:00: White Blood Count 6.8, Red Blood Count 3.41L, Hemoglobin 9.9L, Hematocrit 31L, Mean Corpuscular Volume 89, Mean Corpuscular Hemoglobin 29, Mean Corpuscular Hemoglobin Concent 33, Red Cell Distribution Width 13.7, Platelet Count 390, Mean Platelet Volume 9.6, Neutrophils (%) (Auto) 72, Lymphocytes (%) (Auto) 17, Monocytes (%) (Auto) 9, Eosinophils (%) (Auto) 3, Basophils (%) (Auto) 0, Neutrophils # (Auto) 4.9, Lymphocytes # (Auto) 1.1, Monocytes # (Auto) 0.6, Eosinophils # (Auto) 0.2, Basophils # (Auto) 0.0, Sodium Level 138, Potassium Level 3.3L, Chloride Level 104, Carbon Dioxide Level 23, Anion Gap 11, Blood Urea Nitrogen 11, Creatinine 1.00, Estimat Glomerular Filtration Rate > 60, BUN/Creatinine Ratio 11, Glucose Level 202H, Calcium Level 9.6, Corrected Calcium 10.5H, Total Bilirubin 0.4, Aspartate Amino Transf (AST/SGOT) 25, Alanine Aminotransferase (ALT/SGPT) 24, Alkaline Phosphatase 81, Total Protein 5.8L, Albumin 2.9L Microbiology 12/01/18 MRSA Screen - Final, Complete MRSA not isolated 12/01/18 Gram Stain - Final, Resulted 12/01/18 Anaerobic Culture - Preliminary, Resulted No anaerobes isolated 12/01/18 Surgical Culture - Preliminary, Resulted Staphylococcus aureus 12/01/18 Fungal Culture 1 - Preliminary, Resulted Culture In Progress Assessment/Plan Assessment/Plan Assess & Plan/Chief Complaint Posterior Cervical post surgical wound infection S/P Cervical AP fusion with decompression for cervical stenosis with myelopathy Place wound vac at this time Continue current antibiotic treatment Culture sensitivity pending Clinical Quality Measures DVT/VTE Risk/Contraindication: Risk Factor Score Per Nursin RFS Level Per Nursing on Admit: 3=High Contraindications-Pharm: Other *list below* Other: surgery today spine HOLDEN SOSA Dec 04, 2018 10:14
[2018-12-04 12:00] VITALS: BP 146/77
[2018-12-04] MEDS: VANCOMYCIN 1 GM/NS 250 ML IVPB IV SCH ×2 (12:17)
--- NOTE | 2018-12-04 12:44 | Progress Note - Hospitalist ---
Subjective HPI/CC On Admission Date Seen by Provider: Dec 04, 2018 Time Seen by Provider: 12:15 CC: Cervical spine incision abscess HPI: This is a male pt of Dr. 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 Pulido Neurosurgeon performed needle drainage of abscess found on MRI and blood cultures showed Staph aureus pending whether is MSSA or MRSA. He is being transported to [facility] in [place] where Dr. Hidalgo can perform I&D and he will be placed in the ICU close monitoring due to high risk of spinal cord impingement abscess formation and will be closely monitored, maintained on Cefepime and Vancomycin recommended by Dr. Sumner infectious disease and will be managed aggressively to return to function. Subjective/Events-last exam MRSA cultured on wound We'll discontinue all antibiotics except for vancomycin Wound VAC in place which is helping Left neck pain still persists but much improved Checked meds and labs Bowels are moving Eating and drinking well Blood sugars varied and running highest Will initiate Levemir and NovoLog and refuses to go home on insulin Restarted all home meds after all reviewed Review of Systems General: Fatigue Musculoskeletal: neck pain Objective Exam Vital Signs Vital Signs Date Time Temp Pulse Resp B/P (MAP) Pulse Ox O2 Delivery O2 Flow Rate FiO2 12/04/18 12:00 36.3 80 20 146/77 (100) 95 Room Air 12/01/18 22:50 4 Capillary Refill : Less Than 3 Seconds General Appearance: No Apparent Distress, WD/WN, Chronically ill Respiratory: Chest Non Tender, Lungs Clear, Normal Breath Sounds, No Accessory Muscle Use, No Respiratory Distress Cardiovascular: Regular Rate, Rhythm, No Edema, No Gallop, No JVD, No Murmur, Normal Peripheral Pulses Neurologic/Psychiatric: Alert, Oriented x3, No Motor/Sensory Deficits, Normal Mood/Affect Results/Procedures Lab Laboratory Tests 12/04/18 06:00 Patient resulted labs reviewed. Assessment/Plan Assessment and Plan Assess & Plan/Chief Complaint Assessment: Neck Status incisional type MRSA cultured will discontinue cefepime and maintain vancomycin with wound VAC Diabetes mellitus pwf-zs-xewxuui increased insulin scheduled with long-acting and restarted home meds Hypertension CAD normal stress test 3 days ago Plan: Insulin Home meds Neck spasms Somatic issues Diagnosis/Problems Diagnosis/Problems (1) Neck abscess (2) Diabetes mellitus Status: Chronic Qualifiers: Diabetes mellitus type: type 2 Diabetes mellitus usp insulin use: with ocean transportation intermediary use Diabetes mellitus complication status: with other specified complication Qualified Codes: E11.69 - Type 2 diabetes mellitus with other specified complication; Z79.4 - shelter (current) use of insulin (3) Cellulitis Status: Acute Qualifiers: Site of cellulitis: neck Qualified Codes: L03.221 - Cellulitis of neck (4) CAD (coronary artery disease) Status: Chronic Qualifiers: Coronary Disease-Associated Artery/Lesion type: [place] artery [place] vs. transplanted heart: [place] heart Associated angina: without angina Qualified Codes: I25.10 - Atherosclerotic heart disease of [place] coronary artery without angina pectoris (5) Osteoarthritis Status: Chronic Qualifiers: Osteoarthritis location: unspecified site Osteoarthritis type: unspecified Qualified Codes: M19.90 - Unspecified osteoarthritis, unspecified site (6) History of atrial fibrillation Status: Chronic (7) Incisional abscess Status: Acute (8) Hyperlipidemia Status: Chronic (9) GERD (gastroesophageal reflux disease) Status: Chronic Qualifiers: Esophagitis presence: without esophagitis Qualified Codes: K21.9 - Gastro-esophageal reflux disease without esophagitis (10) Normal cardiac stress test Status: Acute (11) Hx pulmonary embolism Status: Chronic (12) Hx of CABG Status: Chronic Clinical Quality Measures DVT/VTE Risk/Contraindication: Risk Factor Score Per Nursin RFS Level Per Nursing on Admit: 3=High Contraindications-Pharm: Other *list below* Other: surgery today spine WARREN WATERS DO Dec 04, 2018 12:43
[2018-12-04] MEDS ORDERED: HYDROcodone/APAP 10 MG/325 MG (LORTAB) TAB PO PRN (13:45)
[2018-12-04] MEDS ORDERED: NON-FORMULARY MEDICATION 1 EA EA (Glipizide 5 MG) PO SCH (16:00)
[2018-12-04] MEDS: glipiZIDE 5 MG (GLUCOTROL) TAB PO SCH (16:34)
[2018-12-04] MEDS: metFORMIN 500 MG (GLUCOPHAGE) TAB PO SCH (16:34)
[2018-12-04] MEDS: FUROSEMIDE 40 MG (LASIX) TAB PO SCH (16:34)
[2018-12-04 17:28] VITALS: BP 135/77
[2018-12-04 21:00] VITALS: BP 101/76
[2018-12-04] MEDS ORDERED: OMEPRAZOLE 20 MG (PriLOSEC) CAP NON-FORMULARY PO SCH (21:00)
[2018-12-04] MEDS ORDERED: CARVEDILOL 6.25 MG (COREG) TAB PO SCH (21:00)
[2018-12-04] MEDS ORDERED: NON-FORMULARY MEDICATION 1 EA EA (Rosuvastatin Calcium 40 MG) PO SCH (21:00)
[2018-12-04] MEDS ORDERED: NON-FORMULARY MEDICATION 1 EA EA (Metformin HCl 500 MG) PO SCH (21:00)
[2018-12-04] MEDS: ROSUVASTATIN 20 MG (CRESTOR) TABLET PO SCH (21:39)
[2018-12-04] MEDS: PANTOPRAZOLE 20 MG TABLET (PROTONIX) PO SCH (21:40)
[2018-12-04] MEDS: GABAPENTIN 100 MG (NEURONTIN) CAP PO SCH (21:40)
[2018-12-04] MEDS: BACLOFEN 10 MG (LIORESAL) TAB PO PRN (21:41)
[2018-12-04] MEDS: CARVEDILOL 3.125 MG (COREG) TABLET PO SCH (21:41)
[2018-12-04] MEDS: LIDOCAINE PATCH REMOVAL TP SCH (21:46)
[2018-12-04] MEDS: LATANOPROST 0.005% (XALATAN) OPHTH SOLN 2.5 ML OU SCH (21:46)
[2018-12-05] VITALS: BP 142/84
[2018-12-05] MEDS: HYDROcodone/APAP 5 MG/325 MG (LORTAB) TAB PO PRN ×4 (02:18→20:18)
[2018-12-05 04:00] VITALS: BP 122/76
[2018-12-05] MEDS: inSUlin ASPART (NovoLOG) 1 UNIT/0.01 ML (CHARGE PER UNIT) SC SCH ×8 (06:20→23:17)
[2018-12-05] MEDS: PANTOPRAZOLE 20 MG TABLET (PROTONIX) PO SCH ×2 (06:28→20:17)
[2018-12-05] MEDS: metFORMIN 500 MG (GLUCOPHAGE) TAB PO SCH ×2 (06:28→16:45)
[2018-12-05] MEDS: MULTIVIT W/MINERALS TAB (THERAGRAN M) PO SCH (06:28)
[2018-12-05] MEDS: glipiZIDE 5 MG (GLUCOTROL) TAB PO SCH ×2 (06:29→16:45)
[2018-12-05] MEDS: FUROSEMIDE 40 MG (LASIX) TAB PO SCH ×2 (06:29→16:45)
--- NOTE | 2018-12-05 07:52 | Progress Note ---
Subjective Date Seen by a Provider: Dec 05, 2018 Time Seen by a Provider: 07:50 Subjective/Events-last exam Pain ok, awake alert, no complaints Objective Exam Vital Signs Date Time Temp Pulse Resp B/P (MAP) Pulse Ox O2 Delivery O2 Flow Rate FiO2 12/05/18 07:47 Room Air 12/05/18 04:00 36.0 80 18 122/76 (91) 96 Room Air 12/05/18 00:00 36.6 89 18 142/84 (103) 95 Room Air 12/04/18 22:10 36.5 12/04/18 21:00 36.5 81 16 101/76 (84) 95 Room Air 12/04/18 20:16 Room Air 12/04/18 20:00 Room Air 12/04/18 17:28 36.8 82 16 135/77 (96) 96 Room Air 12/04/18 12:00 36.3 80 20 146/77 (100) 95 Room Air 12/04/18 10:17 36.3 12/04/18 08:00 Room Air 12/04/18 08:00 36.3 84 20 142/81 (101) 96 Room Air I & O 12/05/18 07:00 Intake Total 4792.5 ml Output Total 2830 ml Balance 1962.5 ml Capillary Refill : Less Than 3 Seconds General Appearance: No Apparent Distress Neck: Other (Wound vac in place) Respiratory: No Accessory Muscle Use, No Respiratory Distress Cardiovascular: Regular Rate, Rhythm Extremity: Normal Capillary Refill Neurologic/Psychiatric: Alert, Oriented x3, No Motor/Sensory Deficits Results Lab Laboratory Tests 12/04/18 11:34: Glucometer 306H 12/04/18 16:11: Glucometer 256H 12/04/18 21:02: Glucometer 98 12/05/18 06:10: Glucometer 157H Microbiology 12/01/18 MRSA Screen - Final, Complete MRSA not isolated 12/01/18 Gram Stain - Final, Resulted 12/01/18 Anaerobic Culture - Preliminary, Resulted No anaerobes isolated 12/01/18 Surgical Culture - Final, Resulted Staphylococcus aureus 12/01/18 Fungal Culture 1 - Preliminary, Resulted Culture In Progress Assessment/Plan Assessment/Plan Assess & Plan/Chief Complaint Imp: MRSA Posterior Cervical Thoracic Wound Infection Cervical Myelopathy Plan: Arrange D/C with Vanco and wound vac Clinical Quality Measures DVT/VTE Risk/Contraindication: Risk Factor Score Per Nursin RFS Level Per Nursing on Admit: 3=High Contraindications-Pharm: Other *list below* Other: surgery today spine SANDRA REINOSO MD Dec 05, 2018 07:52
[2018-12-05 08:00] VITALS: BP 112/68
[2018-12-05] MEDS: SENNA W/DOCUSATE (SENOKOT S) TABLET PO SCH ×2 (08:49→20:20)
[2018-12-05] MEDS ORDERED: NON-FORMULARY MEDICATION 1 EA EA (Allopurinol 300 MG) PO SCH (09:00)
[2018-12-05] MEDS ORDERED: NON-FORMULARY MEDICATION 1 EA EA (Amlodipine Besylate 5 MG) PO SCH (09:00)
[2018-12-05] MEDS: BACLOFEN 10 MG (LIORESAL) TAB PO PRN (09:04)
[2018-12-05] MEDS: GABAPENTIN 100 MG (NEURONTIN) CAP PO SCH ×2 (09:04→20:17)
[2018-12-05] MEDS: CARVEDILOL 3.125 MG (COREG) TABLET PO SCH ×2 (09:04→20:17)
[2018-12-05] MEDS: LIDOCAINE 4% (SALONPAS) PATCH TOP SCH (09:04)
[2018-12-05] MEDS: ALLOPURINOL 300 MG (ZYLOPRIM) TAB PO SCH (09:05)
[2018-12-05] MEDS: ASPIRIN E.C. 81 MG (ECOTRIN) TAB PO SCH (09:05)
[2018-12-05] MEDS: amLODIPine 5 MG (NORVASC) TAB PO SCH (09:05)
--- NOTE | 2018-12-05 10:10 | NUR ---
DR PATEL IN ROOM PT IS PASSING GAS ND HAD A SMALL BM -- DR PATEL PULLED THE NG , AND THIS RN REMOVED THE HERNANDEZ CATHETER -- PT'S DIET CHANGED TO CLR LIQ -- DR PATEL STRESSED TO PT TO GO SLOWLY ON THE FLUIDS -- PT VERBALIZED UNDERSTANDING
[2018-12-05 11:18] VITALS: BP 128/76
--- NOTE | 2018-12-05 12:48 | Progress Note - Hospitalist ---
Subjective HPI/CC On Admission Date Seen by Provider: Dec 05, 2018 Time Seen by Provider: 12:00 CC: Cervical spine incision abscess HPI: This is a male pt of Dr. Hidalgo's who I had just seen in [place] on 11/16/18 after undergoing cervical spine surgery and had done well, had an uncomplicated hospital course but presents to the [place] ER with chest and neck pain and underwent stress test due to history of CAD and bypass surgery and had no reversible ischemia on scans and reviewed by Dr. Lima his regular pumpman but Dr. Pulido Neurosurgeon performed needle drainage of abscess found on MRI and blood cultures showed Staph aureus pending whether is MSSA or MRSA. He is being transported to [facility] in [place] where Dr. Hidalgo can perform I&D and he will be placed in the ICU close monitoring due to high risk of spinal cord impingement abscess formation and will be closely monitored, maintained on Cefepime and Vancomycin recommended by Dr. Sumner infectious disease and will be managed aggressively to return to function. Subjective/Events-last exam Patient doing well Family at the bedside Wound VAC working well for him Shower will be needed tomorrow after wound VAC removed for short time Vancomycin maintained for MRSA in the wound Tolerating vancomycin well Review of Systems General: Fatigue Objective Exam Vital Signs Vital Signs Date Time Temp Pulse Resp B/P (MAP) Pulse Ox O2 Delivery O2 Flow Rate FiO2 12/05/18 19:47 37.2 82 95 21 12/05/18 19:47 Room Air 12/05/18 19:47 18 124/73 (90) 12/01/18 22:50 4 Capillary Refill : Less Than 3 Seconds General Appearance: No Apparent Distress, WD/WN, Chronically ill Respiratory: Lungs Clear Cardiovascular: Regular Rate, Rhythm Neurologic/Psychiatric: Alert, Oriented x3, No Motor/Sensory Deficits, Normal Mood/Affect Results/Procedures Lab Patient resulted labs reviewed. 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 transplanted heart: [place] heart Associated angina: without angina Qualified Codes: I25.10 - Atherosclerotic heart disease of [place] coronary artery without angina pectoris (5) Osteoarthritis Status: Chronic Qualifiers: Osteoarthritis location: unspecified site Osteoarthritis type: unspecified Qualified Codes: M19.90 - Unspecified osteoarthritis, unspecified site (6) History of atrial fibrillation Status: Chronic (7) Incisional abscess Status: Acute (8) Hyperlipidemia Status: Chronic (9) GERD (gastroesophageal reflux disease) Status: Chronic Qualifiers: Esophagitis presence: without esophagitis Qualified Codes: K21.9 - Gastro- esophageal reflux disease without esophagitis (10) Normal cardiac stress test Status: Acute (11) Hx pulmonary embolism Status: Chronic (12) Hx of CABG Status: Chronic Clinical Quality Measures DVT/VTE Risk/Contraindication: Risk Factor Score Per Nursin RFS Level Per Nursing on Admit: 3=High Contraindications-Pharm: Other *list below* Other: surgery today spine WARREN WATERS DO Dec 05, 2018 12:48
[2018-12-05 16:00] VITALS: BP 123/68
[2018-12-05 19:47] VITALS: BP_SYST 124; BP_SYST 125; BP_DIAS 73
[2018-12-05] MEDS: ROSUVASTATIN 20 MG (CRESTOR) TABLET PO SCH (20:17)
[2018-12-05] MEDS: LATANOPROST 0.005% (XALATAN) OPHTH SOLN 2.5 ML OU SCH (20:20)
[2018-12-05] MEDS: LIDOCAINE PATCH REMOVAL TP SCH (22:00)
[2018-12-06 00:01] VITALS: BP 123/73
[2018-12-06 03:50] VITALS: BP 138/80
[2018-12-06] MEDS: HYDROcodone/APAP 5 MG/325 MG (LORTAB) TAB PO PRN ×4 (04:49→21:24)
[2018-12-06] MEDS: inSUlin ASPART (NovoLOG) 1 UNIT/0.01 ML (CHARGE PER UNIT) SC SCH ×7 (05:16→21:13)
[2018-12-06] MEDS: FUROSEMIDE 40 MG (LASIX) TAB PO SCH ×2 (06:20→16:09)
[2018-12-06] MEDS: MULTIVIT W/MINERALS TAB (THERAGRAN M) PO SCH (06:20)
[2018-12-06] MEDS: glipiZIDE 5 MG (GLUCOTROL) TAB PO SCH ×2 (06:20→16:09)
[2018-12-06] MEDS: metFORMIN 500 MG (GLUCOPHAGE) TAB PO SCH ×2 (06:20→16:10)
[2018-12-06 06:53] LABS: BASOPHILS % (AUTO) 0 % (0-10); EOSINOPHILS # (AUTO) 0.1 10^3/uL (0.0-0.3); EOSINOPHILS % (AUTO) 2 % (0-10); HEMATOCRIT 34 % (40-54); HEMOGLOBIN 10.9 G/DL (13.3-17.7); LYMPHOCYTES # (AUTO) 1.6 X 10^3 (1.0-4.0); LYMPHOCYTES % (AUTO) 18 % (12-44); MEAN CORPUSCULAR HEMOGLOBIN 29 PG (25-34); MEAN CORPUSCULAR HGB CONC 32 G/DL (32-36); MEAN CORPUSCULAR VOLUME 90 FL (80-99); MEAN PLATELET VOLUME 9.2 FL (7.4-10.4); MONOCYTES # (AUTO) 0.9 X 10^3 (0.0-1.0); MONOCYTES % (AUTO) 10 % (0-12); NEUTROPHILS # (AUTO) 6.1 X 10^3 (1.8-7.8); NEUTROPHILS % (AUTO) 70 % (42-75); PLATELET COUNT 448 10^3/uL (130-400); RED CELL DISTRIBUTION WIDTH 14.1 % (10.0-14.5); WHITE BLOOD COUNT 8.8 10^3/uL (4.3-11.0)
[2018-12-06 07:16] LABS: ALANINE AMINOTRANSFERASE 21 U/L (0-55); ALBUMIN 3.1 GM/DL (3.2-4.5); ALKALINE PHOSPHATASE 80 U/L (40-136); BILIRUBIN,TOTAL 0.3 MG/DL (0.1-1.0); BUN/CREATININE RATIO 11; CALCIUM 9.7 MG/DL (8.5-10.1); CARBON DIOXIDE 29 MMOL/L (21-32); CHLORIDE 101 MMOL/L (98-107); CREATININE SERUM 1.02 MG/DL (0.60-1.30); GFR ESTIMATED > 60; GLUCOSE 154 MG/DL (70-105); POTASSIUM 3.1 MMOL/L (3.6-5.0); SODIUM 141 MMOL/L (135-145); TOTAL PROTEIN 6.1 GM/DL (6.4-8.2)
[2018-12-06] MEDS: PANTOPRAZOLE 20 MG TABLET (PROTONIX) PO SCH ×2 (07:47→21:24)
[2018-12-06 08:00] VITALS: BP 121/76
[2018-12-06] MEDS ORDERED: KCL 20 MEQ TAB (K-DUR) PO ONE (08:10)
[2018-12-06] MEDS: GABAPENTIN 100 MG (NEURONTIN) CAP PO SCH ×2 (08:14→21:23)
[2018-12-06] MEDS: LIDOCAINE 4% (SALONPAS) PATCH TOP SCH (08:14)
[2018-12-06] MEDS: ALLOPURINOL 300 MG (ZYLOPRIM) TAB PO SCH (08:14)
[2018-12-06] MEDS: ASPIRIN E.C. 81 MG (ECOTRIN) TAB PO SCH (08:14)
[2018-12-06] MEDS: SENNA W/DOCUSATE (SENOKOT S) TABLET PO SCH ×2 (08:14→21:24)
[2018-12-06] MEDS: CARVEDILOL 3.125 MG (COREG) TABLET PO SCH ×2 (08:14→21:23)
[2018-12-06] MEDS: amLODIPine 5 MG (NORVASC) TAB PO SCH (08:14)
[2018-12-06] MEDS: MAGNESIUM 1 GM/100 ML IVPB 100 ML IV SCH (11:08)
[2018-12-06] MEDS: VANCOMYCIN 1 GM/NS 250 ML IVPB IV SCH ×2 (11:31)
--- NOTE | 2018-12-06 13:14 | Progress Note ---
Subjective Date Seen by a Provider: Dec 06, 2018 Time Seen by a Provider: 13:12 Subjective/Events-last exam Patient states that his pain is much better No complaints at this time Wound care and Outpatient IV antibiotics are being arranged Review of Systems General: No Chills, No Fatigue Gastrointestinal: No: Nausea, Vomiting Musculoskeletal: neck pain Neurological: No: Weakness, Numbness Objective Exam Vital Signs Date Time Temp Pulse Resp B/P (MAP) Pulse Ox O2 Delivery O2 Flow Rate FiO2 12/06/18 10:16 Room Air 12/06/18 08:00 Room Air 12/06/18 08:00 36.8 82 20 121/76 (91) 96 Room Air 12/06/18 03:50 37.1 79 18 138/80 (99) 96 Room Air 12/06/18 00:01 37.4 75 16 123/73 (90) 93 Room Air 12/05/18 20:20 Room Air 12/05/18 19:47 37.2 82 95 21 12/05/18 19:47 Room Air 12/05/18 19:47 37.2 82 18 124/73 (90) 95 Room Air 12/05/18 16:00 37.0 79 16 123/68 (86) 96 Room Air 12/05/18 15:40 36.4 12/05/18 15:07 36.4 I & O 12/06/18 07:00 Intake Total 2330 ml Output Total 2375 ml Balance -45 ml Capillary Refill : Less Than 3 Seconds General Appearance: No Apparent Distress Extremity: No Calf Tenderness Neurologic/Psychiatric: Alert, Oriented x3, No Motor/Sensory Deficits, Normal Mood/Affect Skin: Other (WOund vac in place. No significant output in canister) Results Lab Laboratory Tests 12/05/18 16:07: Glucometer 144H 12/05/18 21:10: Glucometer 199H 12/06/18 05:12: Glucometer 149H 12/06/18 06:40: White Blood Count 8.8, Red Blood Count 3.76L, Hemoglobin 10.9L, Hematocrit 34L, Mean Corpuscular Volume 90, Mean Corpuscular Hemoglobin 29, Mean Corpuscular Hemoglobin Concent 32, Red Cell Distribution Width 14.1, Platelet Count 448H, Mean Platelet Volume 9.2, Neutrophils (%) (Auto) 70, Lymphocytes (%) (Auto) 18, Monocytes (%) (Auto) 10, Eosinophils (%) (Auto) 2, Basophils (%) (Auto) 0, Neutrophils # (Auto) 6.1, Lymphocytes # (Auto) 1.6, Monocytes # (Auto) 0.9, Eosinophils # (Auto) 0.1, Basophils # (Auto) 0.0, Sodium Level 141, Potassium Level 3.1L, Chloride Level 101, Carbon Dioxide Level 29, Anion Gap 11, Blood Urea Nitrogen 11, Creatinine 1.02, Estimat Glomerular Filtration Rate > 60, BUN/Creatinine Ratio 11, Glucose Level 154H, Calcium Level 9.7, Corrected Calcium 10.4H, Magnesium Level 1.6, Total Bilirubin 0.3, Aspartate Amino Transf (AST/SGOT) 16, Alanine Aminotransferase (ALT/SGPT) 21, Alkaline Phosphatase 80, Total Protein 6.1L, Albumin 3.1L 12/06/18 11:27: Glucometer 120H Microbiology 12/01/18 MRSA Screen - Final, Complete MRSA not isolated 12/01/18 Gram Stain - Final, Resulted 12/01/18 Anaerobic Culture - Final, Resulted No anaerobes isolated 12/01/18 Surgical Culture - Final, Resulted Staphylococcus aureus 12/01/18 Fungal Culture 1 - Preliminary, Resulted Culture In Progress Assessment/Plan Assessment/Plan Assess & Plan/Chief Complaint Posterior Cervical post surgical wound infection S/P Cervical AP fusion with decompression for cervical stenosis with myelopathy Clinical Quality Measures DVT/VTE Risk/Contraindication: Risk Factor Score Per Nursin RFS Level Per Nursing on Admit: 3=High Contraindications-Pharm: Other *list below* Other: surgery today spine HOLDEN SOSA Dec 06, 2018 13:14
[2018-12-06] MEDS ORDERED: KCL 20 MEQ TAB (K-DUR) PO NR (14:00)
--- NOTE | 2018-12-06 14:04 | NUR ---
CM/SS spoke with patient for discharge planning. He does not want to be home bound for [facility]. Patient would like to go to [facility] for IV antibiotics and wound vac. This will be arranged at discharge.
--- NOTE | 2018-12-06 15:55 | Progress Note - Hospitalist ---
Subjective HPI/CC On Admission Date Seen by Provider: Dec 06, 2018 Time Seen by Provider: 10:30 CC: Cervical spine incision abscess HPI: This is a male pt of Dr. Hidalgo's who I had just seen in [place] on 11/16/18 after undergoing cervical spine surgery and had done well, had an uncomplicated hospital course but presents to the [place] ER with chest and neck pain and underwent stress test due to history of CAD and bypass surgery and had no reversible ischemia on scans and reviewed by Dr. Lima his regular audiovisual production specialist but Dr. Pulido Neurosurgeon performed needle drainage of abscess found on MRI and blood cultures showed Staph aureus pending whether is MSSA or MRSA. He is being transported to [facility] in [place] where Dr. Hidalgo can perform I&D and he will be placed in the ICU close monitoring due to high risk of spinal cord impingement abscess formation and will be closely monitored, maintained on Cefepime and Vancomycin recommended by Dr. Sumner infectious disease and will be managed aggressively to return to function. Subjective/Events-last exam He has no complaints or concerns today. He is getting his wound vac changed. He denies fevers and chills. He denies chest pain and dyspnea. Objective Exam Vital Signs Vital Signs Date Time Temp Pulse Resp B/P (MAP) Pulse Ox O2 Delivery O2 Flow Rate FiO2 12/06/18 10:16 Room Air 12/06/18 08:00 36.8 82 20 121/76 (91) 96 12/05/18 19:47 21 12/01/18 22:50 4 Capillary Refill : Less Than 3 Seconds General Appearance: No Apparent Distress, WD/WN Neck: Other (posterior midline incision with wound vac) Respiratory: Lungs Clear, Normal Breath Sounds, No Respiratory Distress Cardiovascular: Regular Rate, Rhythm, No Edema, No Murmur Gastrointestinal: Normal Bowel Sounds, Non Tender, Soft Extremity: Normal Inspection, No Pedal Edema Neurologic/Psychiatric: Alert, Oriented x3 Skin: Normal Color, Warm/Dry Results/Procedures Lab Laboratory Tests 12/06/18 06:40 Patient resulted labs reviewed. 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
[2018-12-06 16:00] VITALS: BP 124/70
--- NOTE | 2018-12-06 19:30 | NUR ---
NOTIFIED DR. BUSTAMANTE OF NO VTE/DVT PROPHYLAXIS IN PLACE, INCLUDING PT'S HX OF PE AND A-FIB. THIS RN NOTIFIED TO JUST ENCOURAGE AMBULATION. NO NEW ORDERS AT THIS TIME.
[2018-12-06] MEDS: ROSUVASTATIN 20 MG (CRESTOR) TABLET PO SCH (21:24)
[2018-12-06] MEDS: MELATONIN 3 MG TABLET PO PRN (21:24)
[2018-12-06] MEDS: LATANOPROST 0.005% (XALATAN) OPHTH SOLN 2.5 ML OU SCH (21:25)
[2018-12-06] MEDS: LIDOCAINE PATCH REMOVAL TP SCH (21:25)
[2018-12-07] VITALS: BP 121/75
[2018-12-07] MEDS: PANTOPRAZOLE 20 MG TABLET (PROTONIX) PO SCH (05:36)
[2018-12-07] MEDS: MULTIVIT W/MINERALS TAB (THERAGRAN M) PO SCH (05:37)
[2018-12-07] MEDS: metFORMIN 500 MG (GLUCOPHAGE) TAB PO SCH (05:37)
[2018-12-07] MEDS: glipiZIDE 5 MG (GLUCOTROL) TAB PO SCH (05:37)
[2018-12-07] MEDS: FUROSEMIDE 40 MG (LASIX) TAB PO SCH (05:37)
[2018-12-07] MEDS: inSUlin ASPART (NovoLOG) 1 UNIT/0.01 ML (CHARGE PER UNIT) SC SCH ×4 (05:38→12:21)
[2018-12-07] MEDS: HYDROcodone/APAP 5 MG/325 MG (LORTAB) TAB PO PRN ×2 (05:38→13:51)
[2018-12-07 07:07] LABS: BUN/CREATININE RATIO 9; CALCIUM 9.5 MG/DL (8.5-10.1); CARBON DIOXIDE 29 MMOL/L (21-32); CHLORIDE 100 MMOL/L (98-107); CREATININE SERUM 1.06 MG/DL (0.60-1.30); GFR ESTIMATED > 60; GLUCOSE 108 MG/DL (70-105); POTASSIUM 3.4 MMOL/L (3.6-5.0); SODIUM 139 MMOL/L (135-145)
[2018-12-07 08:00] VITALS: BP 124/73
[2018-12-07] MEDS: LIDOCAINE 4% (SALONPAS) PATCH TOP SCH (08:27)
[2018-12-07] MEDS: SENNA W/DOCUSATE (SENOKOT S) TABLET PO SCH (08:28)
[2018-12-07] MEDS: GABAPENTIN 100 MG (NEURONTIN) CAP PO SCH (08:28)
[2018-12-07] MEDS: ASPIRIN E.C. 81 MG (ECOTRIN) TAB PO SCH (08:28)
[2018-12-07] MEDS: ALLOPURINOL 300 MG (ZYLOPRIM) TAB PO SCH (08:28)
[2018-12-07] MEDS: amLODIPine 5 MG (NORVASC) TAB PO SCH (08:28)
[2018-12-07] MEDS: CARVEDILOL 3.125 MG (COREG) TABLET PO SCH (08:28)
[2018-12-07] MEDS ORDERED: FLU QUADRIvalent (5+ YOA) 2019-2020 (AFLURIA) 0.5 ML IM ONE (09:17)
[2018-12-07] MEDS ORDERED: KCL 20 MEQ TAB (K-DUR) PO NR (10:15)
[2018-12-07] MEDS ORDERED: VANC1PIG IV (10:42)
--- NOTE | 2018-12-07 10:46 | Discharge Instructions ---
Discharge Instructions Discharge Medications New, Converted or Re-Newed RX: RX Given to Pt/Family Patient Instructions Patient Instructions Take medications as prescribed. Continue Vancomycin for 6 weeks total. Follow up with wound care at [facility] for your wound vac. Follow up with Dr. Sumner, infectious disease, at [facility] for your MRSA bacteremia and incisional abscess. Return to The Hospital For: fever, worsening pain, back pain, joint pain, chest pain, dyspnea, or if you feel like you are getting worse. Activity & Diet Discharge Diet: No Restrictions Activity as Tolerated: Yes REZA BUSTAMANTE MD Dec 07, 2018 10:45
--- NOTE | 2018-12-07 11:16 | NUR ---
CM/SS discharge planning. Patient is discharging this day and will have a need for IV antibiotics and wound care, he would like for these services to be at [facility]. Spoke with Infusion services at [facility] and patient is scheduled for the next 5wks at 12:30pm (to begin on 12/08/18) for his IV antibiotic. They require that a [facility] associated dr co-sign the script, information faxed to Dr. Sumner's office and message left requesting call back. [facility] ([phone]) will see the patient for wound vac and have initial appointment set for 12/10 at 9:45am.
--- NOTE | 2018-12-07 21:15 | Discharge Summary ---
Discharge Summary Hospital Course Problems/Dx: (1) MRSA bacteremia Status: Acute (2) Incisional abscess Status: Acute (3) Diabetes mellitus Status: Chronic Qualifiers: Qualified Codes: E11.69 - Type 2 diabetes mellitus with other specified complication; Z79.4 - senior care (current) use of insulin Hospital Course Date of Admission: Dec 01, 2018 at 15:36 Admission Diagnosis : Incisional abscess Family Physician/Provider: Nicole,Local Physician Date of Discharge: 12/07/18 Discharge Diagnosis: Incisional abscess with MRSA bacteremia Hospital Course: Orestes Olivares is a 73yoM who presented about one month after a cervical fusion surgery after being found to have an incisional abscess. He was seen at [facility] and blood cultures were positive for MRSA. A wound culture also grew MRSA. Shortly after admission he underwent an incision and drainage of the abscess with Dr. Hidalgo. He was treated with IV Vancomycin. He underwent an echocardiogram which showed no evidence of endocarditis. He had repeat blood cultures which had no growth to date at the time of discharge. He was continued on IV Vancomycin on discharge which he will receive at a [facility] infusion center and he will follow up with Dr. Sumner, infectious disease. Labs and Pending Lab Test: Laboratory Tests 12/07/18 05:38: Glucometer 107 12/07/18 06:03: Sodium Level 139, Potassium Level 3.4L, Chloride Level 100, Carbon Dioxide Level 29, Anion Gap 10, Blood Urea Nitrogen 10, Creatinine 1.06, Estimat Glomerular Filtration Rate > 60, BUN/Creatinine Ratio 9, Glucose Level 108H, Calcium Level 9.5 12/07/18 10:51: Glucometer 104 Microbiology 12/06/18 Blood Culture - Preliminary, Resulted No growth 12/01/18 MRSA Screen - Final, Complete MRSA not isolated 12/01/18 Gram Stain - Final, Resulted 12/01/18 Anaerobic Culture - Final, Resulted No anaerobes isolated 12/01/18 Surgical Culture - Final, Resulted Staphylococcus aureus 12/01/18 Fungal Culture 1 - Preliminary, Resulted Culture In Progress Home Meds Active Vancomycin 1 Gram/200 ml Bag (Vancomycin/Water For Inj (Peg)) 1 Gm/200 Ml Piggyback 1 Gm IV Q48H 35 Days Reported [place] (Alprostadil) 500 Mcg Supp.ureth 500 Mcg UR UD PRN Metformin HCl 1,000 Mg Tablet 500 Mg PO BID TAKES 1/2 (1000MG) TABLET Carvedilol 6.25 Mg Tablet 3.125 Mg PO BID LAST FILLED #90 06-29-18 TAKES 1/2 (6.25MG) TABLET Glipizide 10 Mg Tablet 5 Mg PO BIDAC TAKES 1/2 (10MG) TABLET Amlodipine Besylate 10 Mg Tablet 5 Mg PO DAILY TAKES 1/2 (10MG) TABLET Garlic 200 Mg Tablet 200 Mg PO HS Calcium 500 + D Tablet (Calcium Carbonate/Vitamin D3) 1 Each Tablet 1 Tab PO MOWEFR Furosemide 40 Mg Tablet 40 Mg PO BID Baclofen 10 Mg Tablet 10 Mg PO Q8H PRN Hydrocodon-Acetaminophn 10-325 (Hydrocodone/Acetaminophen) 1 Each Tablet 1-2 Tab PO Q4H PRN Aspirin EC (Aspirin) 81 Mg Tablet.dr 81 Mg PO DAILY Gabapentin 100 Mg Capsule 200 Mg PO BID TAKES 2 (100MG) CAPSULES Rosuvastatin Calcium 40 Mg Tablet 40 Mg PO HS Multivitamins with Minerals (Multivitamin with Minerals) 1 Each Tablet 1 Tab PO DAILY Latanoprost 2.5 Ml Drops 1 Drop OU HS LAST FILLED 07-20-18 Vitamin B-12 (Cyanocobalamin (Vitamin B-12)) 500 Mcg Tablet 500 Mcg PO DAILY Fish Oil 1,000 mg Capsule ([place] 3 Polyunsat Fatty Acids) 1,000 Mg Cap 1,000 Mg PO 1200 Omeprazole 20 Mg Capsule.dr 20 Mg PO BID LAST FILLED #180 03-18-18 Allopurinol 300 Mg Tablet 300 Mg PO DAILY LAST FILLED #90 08-12-18 Assessment/Pt Instructions See "D/C instructions" Discharge Planning: <30 minutes discharge planning Discharge Instructions Discharge Diet: No Restrictions Activity as Tolerated: Yes Pneumonia Vaccine Order Indica: Yes Discharge Physical Examination Vital Signs Vital Signs Date Time Temp Pulse Resp B/P (MAP) Pulse Ox O2 Delivery O2 Flow Rate FiO2 12/07/18 16:40 12/07/18 08:30 Room Air 12/07/18 08:20 93 12/07/18 08:00 36.9 85 20 12/05/18 19:47 21 12/01/18 22:50 4 General Appearance: No Apparent Distress, WD/WN HEENT: PERRL/EOMI, Pharynx Normal Respiratory: Lungs Clear, Normal Breath Sounds, No Respiratory Distress Cardiovascular: Regular Rate, Rhythm, No Edema, No Murmur Gastrointestinal: Normal Bowel Sounds, Non Tender, Soft Extremity: Normal Inspection, Non Tender, No Pedal Edema Skin: Normal Color, Warm/Dry, Other (posterior neck wound with wound vac in place) Neurologic/Psychiatric: Alert, Oriented x3, No Motor/Sensory Deficits Allergies: Coded Allergies: Penicillins (Unverified Allergy, Unknown, HIVES, 06/13/13) Discharge Summary Date of Admission Dec 01, 2018 at 15:36 Date of Discharge Dec 07, 2018 at 16:45 Discharge Date: Dec 07, 2018 Discharge Time: 15:00 Admission Diagnosis Incisional abscess Discharge Diagnosis MRSA bacteremia and Incisional abscess (1) MRSA bacteremia Status: Acute (2) Incisional abscess Status: Acute (3) Diabetes mellitus Status: Chronic Qualifiers: Qualified Codes: E11.69 - Type 2 diabetes mellitus with other specified complication; Z79.4 - senior care (current) use of insulin Clinical Quality Measures DVT/VTE Risk/Contraindication: Risk Factor Score Per Nursin RFS Level Per Nursing on Admit: 3=High Contraindications-Pharm: Other *list below* Other: surgery today spine REZA BUSTAMANTE MD Dec 07, 2018 21:12
[2018-12-08] MEDS ORDERED: TROUGH ORDER-PHARMACY XX ONE (11:00)
== END 2018-12-07 16:45 | disposition home or self-care (01) | DRG 857 ==
LOC: ICU 15:36 → 4TH 12-02 16:48
PROVIDERS: ADMIT Orthopaedic Surgery Orthopaedic Surgery of the Spine; ATTEND Orthopaedic Surgery Orthopaedic Surgery of the Spine
PROC: 3E0U029 Introduction of Other Anti-infective into Joints, Open Approach (ICD-10-PCS; 2018-12-01)
PROC: 0PB30ZZ Excision of Cervical Vertebra, Open Approach (ICD-10-PCS; principal; 2018-12-01 20:59)
DX: T81.42XA Infection following a procedure, deep incisional surgical site, initial encounter (principal); R78.81 Bacteremia; B95.62 Methicillin resistant Staphylococcus aureus infection as the cause of diseases classified elsewhere; L03.221 Cellulitis of neck; I48.20 Chronic atrial fibrillation, unspecified; G95.9 Disease of spinal cord, unspecified; M62.830 Muscle spasm of back; I10 Essential (primary) hypertension; E78.5 Hyperlipidemia, unspecified; I25.2 Old myocardial infarction; F32.9 Major depressive disorder, single episode, unspecified; I25.10 Atherosclerotic heart disease of native coronary artery without angina pectoris; K21.9 Gastro-esophageal reflux disease without esophagitis; E11.65 Type 2 diabetes mellitus with hyperglycemia; M19.91 Primary osteoarthritis, unspecified site; M10.9 Gout, unspecified; Z95.1 Presence of aortocoronary bypass graft; Z95.5 Presence of coronary angioplasty implant and graft; Z87.891 Personal history of nicotine dependence; Z86.711 Personal history of pulmonary embolism; Z79.84 Long term (current) use of oral hypoglycemic drugs; Z23 Encounter for immunization
CPT/HCPCS: 36415; 36569; 71045; 76937; 80048; 80053; 80202; 82962; 83735; 84100; 85007; 85025; 85027; 87040; 87070; 87075; 87077; 87081; 87101; 87186; 87205; 93306; 94664; 94760